=== PATIENT | female | born 1960 | race Caucasian/White ===

== ENCOUNTER → 2017-01-08 | Outpatient (CLI) | payer OTHER ==
--- NOTE | 2017-01-08 12:42 | KCIC ---
MR of the right knee HISTORY: Acute pain of right knee. Right medial knee pain for 6 weeks. TECHNIQUE: Routine multiplanar sequences are obtained. FINDINGS: Degenerative tear of the medial meniscus. No evidence of lateral meniscal tear mild signal at the anterior horn but no definite tear. Anterior and posterior cruciate ligaments are intact. Medial collateral ligament is intact. Iliotibial band unremarkable. Fibular collateral ligament, biceps femoris tendon and popliteus tendon are intact. Extensor mechanism is intact. Trace joint fluid. Severe chondromalacia at the medial joint compartment. Moderate chondromalacia of the lateral joint with severe chondromalacia at the posterior lateral tibial plateau. Severe chondromalacia at the patellofemoral joint, greater at the patella. No bone lesion. No acute fracture. Trace Betancur's cyst. There is a very small multilobulated cyst or ganglion medial to the medial tibial plateau. IMPRESSION: 1. Medial meniscal tear. 2. Signal at the anterior horn of the lateral meniscus but no definite tear. 3. Severe primary osteoarthritis. Electronically signed by: Abel Starkey MD (01/08/2017 12:38 PM)
--- NOTE | 2017-01-08 14:26 | KCIC ---
HIP LEFT 2 VIEW History: Left hip pain for several months, loss of range of motion Comparison: None. Findings: 2 views of the left hip are submitted. There is large osteophyte projecting laterally from the acetabulum superiorly. Left hip joint space is adequate. Left femoral head morphology is preserved. No acute fracture or dislocation is identified. Impression: 1. There is osteoarthritic change of the left hip, more prominent osteophyte projecting laterally from the superior left acetabulum. Electronically signed by: John Mercado MD (01/08/2017 2:22 PM)
== END ==
LOC: KCIC MRI 11:27
PROVIDERS: ATTEND Family Medicine
DX: S83.241A Other tear of medial meniscus, current injury, right knee, initial encounter (principal); M71.21 Synovial cyst of popliteal space [Baker], right knee; M94.261 Chondromalacia, right knee; X58.XXXA Exposure to other specified factors, initial encounter; Y93.89 Activity, other specified; Y92.89 Other specified places as the place of occurrence of the external cause; Y99.8 Other external cause status; M16.12 Unilateral primary osteoarthritis, left hip
CPT/HCPCS: 73502; 73721

== ENCOUNTER 2017-03-30 17:05 | Emergency (ER) | payer OTHER ==
[~2017-03-30] VITALS: Ht 162.6 cm; Wt 82.6 kg
[2017-03-30 17:56] LABS: BILIRUBIN,URINE NEGATIVE (NEG); GLUCOSE,URINE NEGATIVE (NEG); NITRITE,URINE POSITIVE (NEG); PROTEIN,URINE 30 mg/dL (NEG-TRACE); UROBILINOGEN,URINE 0.2 mg/dL (0.2 mg/dL)
[2017-03-30 18:03] LABS: BACTERIA,URINE MOD /HPF (0-FEW); SQUAMOUS EPITHELIAL CELL,UR MOD /LPF; WBC,URINE 20-40 /HPF (0-4)
[2017-03-30] MEDS ORDERED: CEPH-264 PO (18:51)
--- NOTE | 2017-03-30 18:51 | PHYS DOC ---
Adult General Chief Complaint Chief Complaint: PAIN ON URINATION HPI HPI Patient is a 56 year old F who presents with dysuria since last night. Patient states that every time she urinates she's having pain. Patient states she always had increased urinary frequency. Patient denies any fevers. Patient states this feels like previous bladder infection. Patient denies any abdominal pain. Patient states she only has pain with urination. Patient denies any other symptoms. Review of Systems Review of Systems GEN: Denies fevers, chills, sweats HEENT: Denies blurred vision, sore throat CV: Denies chest pain RESP: Denies shortness of air, cough GI: Burning with urination NEURO: Denies confusion, dizziness MSK: Denies weakness, joint pain/swelling Current Medications Current Medications Current Medications Medications (Trade) Dose Ordered Sig/Gen Start Time Stop Time Status Last Admin Dose Admin Ceftriaxone Sodium 1 gm/ Sodium Chloride 50 ml @ 100 mls/hr Q24H 03/30/17 18:30 UNV Ceftriaxone Sodium (Rocephin Im) 1 gm 1X ONCE 03/30/17 18:30 03/30/17 18:31 UNV Physical Exam Physical Exam GEN.: No apparent distress. Alert and oriented. HEENT: Head is normocephalic, atraumatic NECK: Supple. LUNGS: CTAB. HEART: RRR, S1, S2 present. Peripheral pulses intact ABDOMEN: Soft, nontender. Positive bowel sounds. EXTREMITIES: Without any cyanosis. NEUROLOGIC: Normal speech, normal tone PSYCHIATRIC: Normal affect, normal mood. SKIN: No ulcerations Current Patient Data Lab Values Laboratory Tests Test 03/30/17 17:45 Urine Color Yellow Urine Clarity Cloudy Urine pH 5.0 Urine Specific [place] 1.020 Urine Protein 30 mg/dL (NEG-TRACE) Urine Glucose (UA) Negative mg/dL (NEG) Urine Ketones (Stick) Negative mg/dL (NEG) Urine Blood Large (NEG) Urine Nitrite Positive (NEG) Urine Bilirubin Negative (NEG) Urine Urobilinogen Dipstick 0.2 mg/dL (0.2 mg/dL) Urine Leukocyte Esterase Moderate (NEG) Urine RBC 6-10 /HPF (0-2) Urine WBC 20-40 /HPF (0-4) Urine Squamous Epithelial Cells Mod /LPF Urine Bacteria Mod /HPF (0-FEW) Urine Hyaline Casts Occasional /HPF Urine Mucus Mod /LPF EKG EKG [] Radiology/Procedures Radiology/Procedures [] Course & Med Decision Making Course & Med Decision Making Pertinent Labs and Imaging studies reviewed. (See chart for details) ED course: Patient was seen and examined emergency room UA was ordered 184: Patient was updated on UA results and given 1 g Rocephin IM and will be sent home with Keflex by mouth. Patient is comfortable being discharged. MDM: After reviewing the chart, CC/HPI/PMH, physical exam, [lab results], I do not believe the patient has significant infection warranting further workup and/or admission at this time. I believe the patient has a non-compensated UTI that can be treated with oral antibiotics and discharged home with close follow-up as an outpatient. Patient is stable for discharge. Additional verbal discharge instructions were provided to the patient and that if symptoms get worse or any new symptoms arise that are worrisome to the patient she is to return to the emergency room immediately [] Dragon Disclaimer Dragon Disclaimer This electronic medical record was generated, in whole or in part, using a voice recognition dictation system. Departure Departure Impression: Primary Impression: UTI (urinary tract infection) Disposition: 01 HOME, SELF-CARE Condition: IMPROVED Referrals: KEVIN FRIEDMAN MD (PCP) Patient Instructions: Urinary Tract Infection, [id number] Additional Instructions: Please follow up with your family physician in the next one to 2 days and return symptoms increase Scripts Cephalexin (KEFLEX) 500 Mg Capsule 1 CAP PO TID, #21 CAP Prov: SALONI CASAS DO 03/30/17 SALONI CASAS DO Mar 30, 2017 18:51
[2017-03-30] MEDS ORDERED: cefTRIAXone IM 1 GM VIAL IM ONE (19:15)
[2017-03-30 19:28] VITALS: BP 163/97
== END 2017-03-30 19:30 | disposition home or self-care (01) ==
LOC: ER 17:05
DX: N39.0 Urinary tract infection, site not specified (principal)
CPT/HCPCS: 81001; 96372; 99283; J0696

== ENCOUNTER → 2017-09-01 | Day surgery (SDC) | payer OTHER ==
[~2017-09-01] MED LIST: DEXAMETHASONE SOD PHOS 20 MG/5 ML VIAL.; HYDROmorphone 2 MG/ML VIAL IV; LIDOCAINE 1% PF 2 ML VIAL. ID; LIDOCAINE 2% PF Vial for OR 5 ML VIAL.; MORPHINE SULFATE 2 MG/ML DISP.SYRIN. IV; ONDANSETRON PF 4 MG/2 ML VIAL.; ONDANSETRON PF 4 MG/2 ML VIAL. IV; PROCHLORPERAZINE 10 MG/2 ML VIAL. IV; PROPOFOL 20 ML IV; SCOPOLAMINE 1.5MG PATCH. TD; SEVOFLURANE 31 TO 60 MINUTES. IH; fentaNYL PF VIAL 100 MCG/2 ML VIAL; fentaNYL PF VIAL 100 MCG/2 ML VIAL IV
[2017-09-01] MEDS: IV RINGERS,LACTATED 1000ML 1,000 ML IV ×2 (07:00)
[2017-09-01] MEDS: SCOPOLAMINE 1.5MG PATCH. TD ×2 (12:40)
[2017-09-01] MEDS: BUPIVACAINE MPF 0.5% 30 ML VIAL. ×2 (13:40)
[2017-09-01] MEDS: fentaNYL PF VIAL 100 MCG/2 ML VIAL IV ×4 (14:24→14:38)
[2017-09-01] MEDS: ALBUTEROL SULFATE 2.5 MG/3 ML NEBU. NEB ×2 (15:06)
[2017-09-01] MEDS: oxyCODONE/APAP 5/325 1 TAB TABLET PO ×2 (15:14)
== END | disposition home or self-care (01) ==
LOC: SURG 09:59
DX: S83.241A Other tear of medial meniscus, current injury, right knee, initial encounter (principal); X58.XXXA Exposure to other specified factors, initial encounter; Y93.89 Activity, other specified; Y92.89 Other specified places as the place of occurrence of the external cause; Y99.8 Other external cause status; M94.261 Chondromalacia, right knee; E78.00 Pure hypercholesterolemia, unspecified; Z86.69 Personal history of other diseases of the nervous system and sense organs; Z90.710 Acquired absence of both cervix and uterus; Z87.442 Personal history of urinary calculi; Z87.39 Personal history of other diseases of the musculoskeletal system and connective tissue
CPT/HCPCS: 29881; J0690; J1100; J2405; J2704; J3010; J3490; J7613

== ENCOUNTER 2018-08-05 08:25 | Emergency (ER) | payer OTHER ==
[~2018-08-05] VITALS: Ht 157.5 cm; Wt 81.6 kg
[~2018-08-05 08:25] MED LIST changes: +CEPH-264 PO; -DEXAMETHASONE SOD PHOS 20 MG/5 ML VIAL.; -HYDROmorphone 2 MG/ML VIAL IV; -LIDOCAINE 1% PF 2 ML VIAL. ID; -LIDOCAINE 2% PF Vial for OR 5 ML VIAL.; -MORPHINE SULFATE 2 MG/ML DISP.SYRIN. IV; +OMEP20TA8 PO; -ONDANSETRON PF 4 MG/2 ML VIAL.; -ONDANSETRON PF 4 MG/2 ML VIAL. IV; +OXYC1TAB15 PO; +PRAM0.255 PO; -PROCHLORPERAZINE 10 MG/2 ML VIAL. IV; -PROPOFOL 20 ML IV; -SCOPOLAMINE 1.5MG PATCH. TD; -SEVOFLURANE 31 TO 60 MINUTES. IH; +SIMV20TA3 PO; -fentaNYL PF VIAL 100 MCG/2 ML VIAL; -fentaNYL PF VIAL 100 MCG/2 ML VIAL IV
[2018-08-05 08:46] VITALS: BP 143/83
--- NOTE | 2018-08-05 08:58 | PHYS DOC ---
Past Medical History Past Medical History: UTI Past Surgical History: No Surgical History Alcohol Use: None Drug Use: None Adult General Chief Complaint Chief Complaint: GROIN PAIN HPI HPI Patient is a 57 year old female who presents with left hip pain for 7 years and was diagnosed with arthritis and groin pain times years patient states low but worse today. She also complains that now she has a strained left hamstring. Recent pain a 10 out of 10 when she gets up and moves only. Review of Systems Review of Systems Constitutional: Denies fever or chills [] Eyes: Denies change in visual acuity, redness, or eye pain [] HENT: Denies nasal congestion or sore throat [] Respiratory: Denies cough or shortness of breath [] Cardiovascular: No additional information not addressed in HPI [] GI: Denies abdominal pain, nausea, vomiting, bloody stools or diarrhea [] : Denies dysuria or hematuria [] Musculoskeletal: Denies back pain or chronic left hip and groin joint pain [] Integument: Denies rash or skin lesions [] Neurologic: Denies headache, focal weakness or sensory changes [] All other systems were reviewed and found to be within normal limits, except as documented in this note. Current Medications Current Medications Current Medications Medications (Trade) Dose Ordered Sig/Gen Start Time Stop Time Status Last Admin Dose Admin Cyclobenzaprine HCl (Flexeril) 10 mg 1X ONCE 08/05/18 09:00 08/05/18 09:01 DC 08/05/18 08:58 10 MG Ketorolac Tromethamine (Toradol Im) 60 mg 1X ONCE 08/05/18 09:00 08/05/18 09:01 DC 08/05/18 08:59 60 MG Allergies Allergies Allergies Coded Allergies Type Severity Reaction Last Updated Verified No Known Drug Allergies 09/01/17 No Physical Exam Physical Exam Constitutional: Well developed, well nourished, no acute distress, non-toxic appearance. [] HENT: Normocephalic, atraumatic, bilateral external ears normal, oropharynx moist, no oral exudates, nose normal. [] Eyes: PERRLA, EOMI, conjunctiva normal, no discharge. [] Neck: Normal range of motion, no tenderness, supple, no stridor. [] Cardiovascular:Heart rate regular rhythm, no murmur [] Lungs & Thorax: Bilateral breath sounds clear to auscultation [] Abdomen: Bowel sounds normal, soft, no tenderness, no masses, no pulsatile masses. [] Skin: Warm, dry, no erythema, no rash. [] Back: No tenderness, no CVA tenderness. [] Extremities: No tenderness, no cyanosis, no clubbing, left hip ROM intact but painful., no edema. [] Neurologic: Alert and oriented X 3, normal motor function, normal sensory function, no focal deficits noted. [] Psychologic: Affect normal, judgement normal, mood normal. [] Current Patient Data Vital Signs Vital Signs Date Time Temp Pulse Resp B/P (MAP) Pulse Ox O2 Delivery O2 Flow Rate FiO2 08/05/18 08:46 98.4 82 18 143/83 (103) 98 Room Air 98.4 EKG EKG [] Radiology/Procedures Radiology/Procedures Left hip with pelvis Impressions: [facility] [address] [place] [address] IMAGING REPORT Signed PATIENT: MORAIMA WHITE ACCOUNT: [id number] : 1960 LOCATION: ER AGE: 57 SEX: F EXAM STATUS: REG ER ORD. PHYSICIAN: SUZANNE VO APRN REASON: chronic pain in hip and groin PROCEDURE: HIP LEFT 2V WITH PELVIS AP view of the pelvis and two-view study of the left hip Clinical indications: Chronic left hip pain and left groin pain for 2 years which has become worse over the past 2 weeks. No known injury. COMPARISON: Left hip study dated January 08, 2017. FINDINGS: No acute fracture or dislocation or osteolytic process is seen. Again seen is a focal bone island of the proximal shaft of the left femur which is unchanged. Again seen is moderate degenerative spurring without joint space narrowing of the left hip joint which is unchanged. There is mild degenerative spurring of the right hip joint. IMPRESSION: No acute osseous abnormality. Stable primary degenerative osteoarthritis of the left hip. Electronically signed by: Angelcia Horton MD (08/05/2018 9:18 AM) [id number] DICTATED and SIGNED BY: ANGELICA HORTON MD DATE: 08/05/18 0915 Course & Med Decision Making Course & Med Decision Making Patient is a 57 year old female who presents with left hip pain for 7 years and was diagnosed with arthritis and groin pain times years patient states low but worse today. She also complains that now she has a strained left hamstring. Recent pain a 10 out of 10 when she gets up and moves only. Ambulatory with a steady gait. Patient states she has some pain medicine left and she started taking it but has not taken anything today. There is no extremity swelling. Pedal pulses are present. There is no pain with palpation to calves or muscles of her legs. There is no deformity of the hip or swelling of the hip or bruising. She states her groin only hurts when she goes from sitting to standing or having to bend. Patient's primary care is Dr. Friedman. Patient is told this is most likely due to arthritis and chronically walking on the leg differently which is causing the groin pain and other ligament pain and possibly muscle strain in the back of her leg. Patient is given a Toradol IM shot and a muscle relaxer in the ED. X-ray of left hip and pelvics show No acute osseous abnormality. Stable primary degenerative osteoarthritis of the left hip. Patient will be given a prescription for pain medication and a muscle relaxer. She is to call her doctor this morning follow-up for continuation of care. Dragon Disclaimer Dragon Disclaimer This electronic medical record was generated, in whole or in part, using a voice recognition dictation system. Departure Departure Impression: Primary Impression: Arthritis of left hip Additional Impression: Muscle strain Disposition: 01 HOME, SELF-CARE Condition: STABLE Referrals: KEVIN FRIEDMAN MD (PCP) Patient Instructions: Arthritis, Degenerative-Brief, Muscle Strain Additional Instructions: Call your doctor today for continuation of care. Take medication as prescribed. Scripts Orphenadrine Citrate (ORPHENADRINE CITRATE) 100 Mg Tablet.er 1 TAB PO BID, #20 TAB Prov: SUZANNE VO APRN 08/05/18 Hydrocodone/Apap 5-325 (NORCO 5-325 TABLET) 1 Each Tablet 1 TAB PO PRN Q6HRS PRN for PAIN, #10 TAB 0 Refills Prov: SUZANNE VO APRN 08/05/18 Problem Qualifiers SUZANNE VO APRN Aug 05, 2018 08:58
[2018-08-05] MEDS ORDERED: CYCLOBENZAPRINE 10 MG TABLET. PO ONE (09:00)
[2018-08-05] MEDS ORDERED: KETOROLAC 60 MG/2 ML VIAL. IM ONE (09:00)
--- NOTE | 2018-08-05 09:23 | RAD ---
AP view of the pelvis and two-view study of the left hip Clinical indications: Chronic left hip pain and left groin pain for 2 years which has become worse over the past 2 weeks. No known injury. COMPARISON: Left hip study dated January 08, 2017. FINDINGS: No acute fracture or dislocation or osteolytic process is seen. Again seen is a focal bone island of the proximal shaft of the left femur which is unchanged. Again seen is moderate degenerative spurring without joint space narrowing of the left hip joint which is unchanged. There is mild degenerative spurring of the right hip joint. IMPRESSION: No acute osseous abnormality. Stable primary degenerative osteoarthritis of the left hip. Electronically signed by: Melvin Horton MD (08/05/2018 9:18 AM) [id number]
[2018-08-05] MEDS ORDERED: ORPH100T PO (09:29)
[2018-08-05] MEDS ORDERED: HYDR-3164 PO (09:29)
== END 2018-08-05 09:35 | disposition home or self-care (01) ==
LOC: ER 08:25
DX: S86.812A Strain of other muscle(s) and tendon(s) at lower leg level, left leg, initial encounter (principal); M16.12 Unilateral primary osteoarthritis, left hip; R10.30 Lower abdominal pain, unspecified; G89.29 Other chronic pain; X58.XXXA Exposure to other specified factors, initial encounter; Y93.89 Activity, other specified; Y92.89 Other specified places as the place of occurrence of the external cause; Y99.8 Other external cause status
CPT/HCPCS: 73502; 96372; 99283; J1885

== ENCOUNTER → 2018-09-14 | Outpatient (CLI) | payer OTHER ==
[~2018-09-14] MED LIST changes: +BUPIVACAINE MPF 0.5% 10 ML VIAL for KCIC. IM ONE; +HYDR-3164 PO; +IOHEXOL 300 MG/ML 50 ML VIAL. INT ART ONE; +LIDOCAINE 1% Multi-Dose 20 ML VIAL. ID ONE; +ORPH100T PO; +methylPREDNISolone ACETATE 40 MG/ML VIAL. INT ART ONE
--- NOTE | 2018-09-14 16:42 | KCIC ---
EXAM: Left hip joint injection WITH Fluoroscopic guidance DATE: 09/14/2018 1:00 PM CLINICAL HISTORY: Left hip pain, osteoarthritis COMPARISON: 09/08/2018 TECHNIQUE: The patient was informed of the indications and alternatives for this procedure as well as risks and benefits. No immediate contraindication identified. The patient provided informed, written consent. Laterality was confirmed by the entire team following a time out. Following initial left hip joint localization, a suitable area was sterilely prepped and draped. Local anesthesia was administered with 1% xylocaine. With intermittent fluoroscopic observation, a 22-gauge spinal needle was advanced into the left hip joint sheath/capsule with confirmation of intra-synovial position with infusion of iodinated contrast. Subsequent infusion 80 mg Depo-Medrol, 4 cc lidocaine 1%, 4 cc bupivacaine 0.25%. Hemostasis with local pressure. Local clinical exam negative for immediate complication. Patient informed re local potential signs or symptoms that may indicate need to return to ER/Ordering physician for further evaluation. Patient informed re precautionary measures after intra-synovial injection of anesthetic. Patient informed re potential for short term increase local symptomatology due to steroid flare. Patient expressed understanding. Performing Physicians: Dr. Cynthia Sun Blood Loss: 0 cc Total Fluoroscopy time: 18 seconds Total spot images taken: 0 Total fluoroscopic screen save images: 1 IMPRESSION: Successful intra-synovial injection left hip joint with steroid and anesthetic per clinical request. Electronically signed by: Geovany Sun MD (09/14/2018 4:40 PM) [facility]-KCIC2
== END | disposition home or self-care (01) ==
LOC: KCIC 12:11
PROVIDERS: ATTEND Orthopaedic Surgery
DX: M16.12 Unilateral primary osteoarthritis, left hip (principal); I10 Essential (primary) hypertension; Z79.899 Other long term (current) drug therapy
CPT/HCPCS: 20610; 77002; J1030; Q9967

== ENCOUNTER → 2018-11-12 | Outpatient (CLI) | payer OTHER ==
[~2018-11-12] MED LIST changes: -BUPIVACAINE MPF 0.5% 10 ML VIAL for KCIC. IM ONE; -IOHEXOL 300 MG/ML 50 ML VIAL. INT ART ONE; -LIDOCAINE 1% Multi-Dose 20 ML VIAL. ID ONE; -methylPREDNISolone ACETATE 40 MG/ML VIAL. INT ART ONE
--- NOTE | 2018-11-12 15:06 | KCIC ---
2 view lumbar spine series Clinical indications: Low back pain. Previous lumbar surgery in the 80s. FINDINGS: The transverse processes are intact. No compression fracture or discitis or lytic process is evident. There is a grade 1 anterolisthesis of L4-5. Degenerative facet arthropathy is seen at L4-5 and L5-S1 is seen. There is mild degenerative endplate spurring throughout the lumbar spine. There is moderate degenerative endplate spurring and moderate degenerative disc space narrowing at L5-S1. Small radiopaque stone of the left kidney is seen. There is a laminectomy defect on the left side at L5. IMPRESSION: Degenerative lumbar spondylosis. Grade 1 anterolisthesis of L4-5. Electronically signed by: Melvin Horton MD (11/12/2018 3:03 PM) [facility]-KCIC2
--- NOTE | 2018-11-12 15:08 | KCIC ---
AP view of the pelvis Clinical indications: Back pain. FINDINGS: No diastases of the symphysis pubis or either SI joint is seen. Mild primary degenerative osteoarthritis and spurring of the symphysis pubis is seen. No erosive arthropathy or ankylosis of either SI joint is seen. There is mild primary degenerative osteoarthritis of the right hip joint and moderate primary degenerative osteoarthritis of the left hip joint. No acute fracture or lytic process is seen. IMPRESSION: Primary degenerative osteoarthritis of both hip joints more prominent on the left side. Electronically signed by: Melvin Horton MD (11/12/2018 3:05 PM) [facility]-KCIC2
--- NOTE | 2018-11-12 17:40 | KCIC ---
2 view study of both ankles Clinical indications: Bilateral ankle pain. Osteoarthritis. Left ankle: No acute fracture or dislocation or lytic process is seen. There is a prominent spur of the medial body of the talus. Mild degenerative subchondral cyst formation of the medial aspect of the mortise ankle joint is seen. Mild degenerative spurring of the tibiotalar joint compartment is seen. Small posterior spur of the calcaneus is seen. Small plantar spur of the calcaneus is seen. There is mild calcification of the plantar fascia attachment to the plantar aspect of the calcaneus which may indicate mild plantar fasciitis. IMPRESSION: Mild degenerative osteoarthritis of the mortise ankle joint. Mild calcific plantar fasciitis. Right ankle: No acute fracture or dislocation or lytic process is evident. There is mild degenerative spurring of the tibiotalar joint compartment. The mortise ankle joint is intact. Prominent plantar spur of the calcaneus is seen. Small posterior spur of the calcaneus is seen. IMPRESSION: Mild degenerative osteoarthritis of the mortise ankle joint. Electronically signed by: Melvin Horton MD (11/12/2018 5:37 PM) [facility]-KCIC2
--- NOTE | 2018-11-12 17:42 | KCIC ---
AP view of both hands Clinical indications: Osteoarthritis and joint pain. M 15.9. R 76.0. R53.83. Left hand: No acute fracture or dislocation or lytic process is seen. No erosive arthropathy is evident. There is mild primary degenerative osteoarthritis and spurring of the first carpal metacarpal joint and the scaphoid trapezium joint and the distal radioulnar joint and the first metacarpal phalangeal joint and the first interphalangeal joint. Right hand: No acute fracture or dislocation or lytic process is seen. No erosive arthropathy is evident. There is mild degenerative spurring of the scaphoid trapezium joint and the first carpal metacarpal joint and the first metacarpal phalangeal joint and the first interphalangeal joint and the second DIP joint and the distal radial ulnar joint. IMPRESSION: Mild primary degenerative osteoarthritis of both hands and wrists. Electronically signed by: Melvin Horton MD (11/12/2018 5:39 PM) [email or web address]
== END | disposition home or self-care (01) ==
LOC: KCIC 10:27
PROVIDERS: ATTEND Internal Medicine Rheumatology
DX: M47.816 Spondylosis without myelopathy or radiculopathy, lumbar region (principal); M48.07 Spinal stenosis, lumbosacral region; M16.0 Bilateral primary osteoarthritis of hip; M19.072 Primary osteoarthritis, left ankle and foot; M19.071 Primary osteoarthritis, right ankle and foot; M77.31 Calcaneal spur, right foot; M77.32 Calcaneal spur, left foot; M19.042 Primary osteoarthritis, left hand; M19.041 Primary osteoarthritis, right hand; M72.2 Plantar fascial fibromatosis; M77.9 Enthesopathy, unspecified; R76.0 Raised antibody titer; R53.83 Other fatigue
CPT/HCPCS: 72100; 72170; 73120; 73600

== ENCOUNTER → 2019-03-10 | Outpatient (CLI) | payer OTHER ==
[~2019-03-10] MED LIST changes: +REGADENOSON 0.4 MG/5 ML DISP.SYRIN. IV ONE
--- NOTE | 2019-03-11 12:25 | RAD ---
MR#: [id number] Date of Study: 03/10/2019 Ordering Physician: CATY DRAKE, Referring Physician: JASIEL ROBERTS Tech: RUSH Lindsay ARRT (R) (N) APPROVED REPORT Test Type: Pharmacological Stress Nurse/Tech: Sarah Gupta RN Test Indications: Chest pain Cardiac History: Family history Medications: See Electronic Medical Record Medical History: See Electronic Medical Record Resting ECG: SR Resting Heart Rate: 75 bpm Resting Blood Pressure: 157/90mmHg Pretest Chest Pain: No chest pain Nurse/Tech Notes S1,S2 and lungs are clear to auscultation. Consent: The procedure was explained to the patient in lay terms. Informed consent was witnessed. Raul eout was entered into [employer]. History and Stress Test performed by RUSH Lindsay ARRT (R) (N) Pharm. Details Pharmacologic stress testing was performed using 0.4mg per 5ml of regadenoson given intravenously ove r 7-10 seconds. Stress Symptoms Dyspnea POST EXERCISE Reason for Termination: Infusion complete Target HR: No Max HR: 113 bpm Max Blood Pressure: 147/88mmHg Blood Pressure response to exercise: Normal blood pressure response during stress. Heart Rate response to exercise: WNL Chest Pain: No. Arrhythmia: No. ST Change: No. INTERPRETATION Stress EKG Conclusion: Baseline EKG showed sinus rhythm. No ischemic changes at peak stress. No arr hythmias. Imaging Protocol IMAGE PROTOCOL: Rest Tc-99m/stress Tc-99m 1 day Rest: Stress: Viability: Radiopharm.Tc99m [id number] Sestamibi [id number] 33mCi Img Date 03/10/2019 03/10/2019 Inj-Img [id number]. 60min. Rest Admin Site:IV - Left AntecubitalAdministrator:RUSH Lindsay ARRT (R)(N) Stress Admin Site: IV - Left AntecubitalAdministrator: RT Tomasa (R)(N) Study quality was good. Left Ventricular size was Normal at Rest and Stress. Lung uptake was . Left Ventricular ejection fraction is 89%. The rest and stress images show normal perfusion, normal contraction and thickening. Conclusion 1. Regadenoson cardioisotope stress test did not show any evidence of ischemia or infarct. 2. Normal left ventricular systolic function with ejection fraction calculated at 89%. 3. Low risk for cardiac events. Signed by : Grey Aguialr, Electronically Approved : 03/11/2019 12:25:23
== END | disposition home or self-care (01) ==
LOC: NM 09:14
PROVIDERS: ATTEND Internal Medicine
DX: I25.118 Atherosclerotic heart disease of native coronary artery with other forms of angina pectoris (principal); Z82.49 Family history of ischemic heart disease and other diseases of the circulatory system
CPT/HCPCS: 78452; 93017; A9500; J2785

== ENCOUNTER → 2019-07-08 | Outpatient (CLI) | payer OTHER ==
[~2019-07-08] MED LIST changes: -REGADENOSON 0.4 MG/5 ML DISP.SYRIN. IV ONE; +SIMV20TA18 PO; -SIMV20TA3 PO
--- NOTE | 2019-07-09 14:17 | KCIC ---
Right knee 2 views. HISTORY: Chronic knee pain 2 views were taken of the right knee. There is mild joint space narrowing in the medial joint compartment. There is slight chondrocalcinosis. There is mild spurring on the patella. There is no acute fracture. IMPRESSION: 1. Mild arthritis with mild joint space narrowing in the medial joint compartment. Electronically signed by: Reynold Reed MD (07/09/2019 2:14 PM) [facility]
== END | disposition home or self-care (01) ==
LOC: KCIC 13:24
PROVIDERS: ATTEND Internal Medicine Rheumatology
DX: M17.11 Unilateral primary osteoarthritis, right knee (principal); G89.29 Other chronic pain; R76.0 Raised antibody titer
CPT/HCPCS: 73560

== ENCOUNTER → 2019-10-06 | Outpatient (CLI) | payer OTHER ==
[~2019-10-06] MED LIST changes: +BUPIVACAINE MPF 0.25% 10 ML VIAL. ONE; +CELE200C PO; +GABA-585 PO; +IOHEXOL 240 MG/ML 50ML VIAL. ONE; +LISI2.5T PO; +METF500T16 PO; +SIMV40TA18 PO; +VITA1CAP7 PO; +methylPREDNISolone ACETATE 80 MG/ML VIAL. ONE
--- NOTE | 2019-10-06 21:42 | PAIN ---
DATE OF SERVICE: 10/06/2019 INITIAL CONSULTATION FOR PAIN CLINIC CHIEF COMPLAINT: Left hip pain and right knee pain. HISTORY OF PRESENT ILLNESS: This is a 58-year-old female who presents with history of pain, both in the left hip and the right knee for many years, about 9 years, increasing with activity, walking, standing, especially putting all of her weight on one side or the other. The patient reports her right knee is her chief complaint, but her left hip is significantly painful as well. The patient reports a constant pain that is aching and dull, worse with walking, standing, putting all her weight on one side, especially when she is stepping on a stair or a curb on the left hip with radiating pain to the left groin significant pain and stiffness in the right knee with the same activities with putting normal weight on her right side. The patient reports it is constant and aching, rates her disability rating from 0-10, 10 being the worst, is a 10 with family and home responsibilities, recreation, occupation and sexual behavior, 7 with self-care, 9 with social activity, 4 with life support activities. The patient has tried Celebrex as well as gabapentin. She has done physical therapy, also had some trigger point injections, which helped, but only temporarily. The patient had x-rays of both the hips and the knees showing some degenerative arthritis, osteoarthritis in each joint as documented. The patient reports no loss of motor function, but significant fatigability, especially of the left hip and the right knee with stiffness in the knee with walking, standing or even just weightbearing. The patient reports it awakens her from sleep occasionally, mostly in the left hip when she is lying on her left side, on and off through the night. The patient reports it does not affect her bowel or bladder control, but does affect her ability to walk; however, she is not using any assistive devices to ambulate. PAST MEDICAL HISTORY: Significant for shortness of breath, diabetes, hypertension, arthritis. SURGICAL HISTORY: Previous surgeries include lumbar laminectomy, previous hysterectomy, or bladder sling oophorectomy lipoma removed as well as knee surgery with meniscectomy. CURRENT MEDICATIONS: Include Celebrex, metformin, lisinopril, simvastatin, gabapentin, Mirapex and vitamin B. ALLERGIES: THE PATIENT IS ALLERGIC TO ERYTHROMYCIN, AZITHROMYCIN. FAMILY HISTORY: Significant for hypertension, diabetes, rheumatoid arthritis, cancer and heart disease. SOCIAL HISTORY: The patient does not drink alcohol, does not smoke, does not use any illegal, illicit or recreational drugs. She is , lives with her spouse, lives locally in [place], [place]. REVIEW OF SYSTEMS: The patient's review of systems is positive for those items mentioned in history of present illness. All systems reviewed and otherwise negative. It is complete, full and well documented on the patient's chart. PHYSICAL EXAMINATION: VITAL SIGNS: The patient's blood pressure is 137/92, pulse 88, respirations 18, temperature 98.1 degrees Fahrenheit, height is 5 feet 2 inches, weight is 195 pounds. GENERAL: The patient is awake, alert, oriented, appropriate, very pleasant demeanor. HEENT: Head shows normocephalic, atraumatic. Extraocular movements are intact and symmetrical. Oral cavity: Mucous membranes moist and pink. Dentition is intact. NECK: Shows anterior throat supple without palpable lymphadenopathy noted. Swallow reflex symmetrical. CHEST: Shows normal on inspection. Breath sounds clear to auscultation bilaterally. ABDOMEN: Soft, nontender, nondistended. No palpable organomegaly is noted. No rebound or guarding demonstrated. HEART: Shows S1, S2 clear. No murmurs auscultated. BACK: Shows spine grossly in the midline, normal-appearing cervical lordotic curvature, thoracic kyphotic curvature, some minor flattening of lumbar lordotic curvature. The patient's back shows good rotational motion both laterally as well as the extension and flexion, only very minimal pain with extension, not with forward flexion, right and left lateral rotation of the lumbar spine. Paraspinous muscles are symmetrical. No trigger points, no asymmetry, no atrophy or hypertrophy. No tenderness over the spinous processes, sacrum or sacroiliac regions. EXTREMITIES: The patient's lower extremities show deep tendon reflexes at 1+ in the patellar and tendo calcaneus tendons. Motor exam is 5/5 with dorsiflexion, extension, quadriceps and hamstring flexion symmetrical. The patient has had some stiffness and pain reported with passive motion of the right knee, but no displacement of the patella with increased pain. No shelf sign. No ratcheting or cogwheeling of the joint. No crepitus of the joint with left hip shows positive Kamari's sign with external rotation and lateral displacement of the left hip with significant pain in the left groin, but right side is negative. Left knee likewise is negative with good range of motion without pain or stiffness. Peripheral pulses are 1+ posterior tibia. No peripheral edema is noted bilaterally. IMPRESSION: 1. This is a 58-year-old female with approximately 9-year history of pain in the base of the neck into the left hip as well as right knee with her main complaint being the right knee pain today. 2. Plain films of left hip and right knee as noted. 3. Type 2 diabetes. 4. Hypertension. 5. Arthritis. PLAN: Options were discussed with the patient including conservative medical management, physical therapies and interventional techniques were discussed. Intraarticular joint injections of both the left hip and the right knee. The patient reports her knee is the most painful at this time and she would like to start with the right knee joint injection. We discussed the procedure using description as well as anatomical models to describe the procedure. Risks were discussed including but not limited to bleeding, infection, possibility of intravascular injection sequelae, spread of local anesthetic and numbness, exposure to fluoroscopy, side effects of steroid medication including increased blood glucose and poor results regarding pain control. The patient understands and wished to proceed. The patient will return to clinic in approximately 2 weeks for followup. She was counseled on return appointment, activity level and side effects to be aware of. DIAGNOSIS: Right knee pain with osteoarthritis, right knee joint. PROCEDURE: Right intra-articular knee joint injection using C-arm fluoroscopic guidance under sterile prep and drape using local anesthetic. MEDICATION INJECTED: A total of 80 mg Depo-Medrol plus 3 mL of 0.25% bupivacaine and 1.5 mL of contrast. CONDITION AT DISCHARGE: Stable. The patient tolerated the procedure well, had no complications. CAROL JIMENEZ MD DR: ABDI/krystle JOB#: [id number] / [id number] KEVIN Rivera MD
== END ==
LOC: PNCL 09:29
PROVIDERS: ATTEND Anesthesiology
DX: M17.11 Unilateral primary osteoarthritis, right knee (principal); E11.9 Type 2 diabetes mellitus without complications; I10 Essential (primary) hypertension; Z87.39 Personal history of other diseases of the musculoskeletal system and connective tissue; Z90.710 Acquired absence of both cervix and uterus; Z90.721 Acquired absence of ovaries, unilateral; Z98.890 Other specified postprocedural states; Z88.1 Allergy status to other antibiotic agents; Z79.84 Long term (current) use of oral hypoglycemic drugs
CPT/HCPCS: 20610; 77002; J1040; J3490; Q9966

== ENCOUNTER → 2020-02-16 | Outpatient (CLI) | payer OTHER ==
[~2020-02-16] MED LIST changes: -BUPIVACAINE MPF 0.25% 10 ML VIAL. ONE; -IOHEXOL 240 MG/ML 50ML VIAL. ONE; +KETO10TA PO; -methylPREDNISolone ACETATE 80 MG/ML VIAL. ONE
--- NOTE | 2020-02-16 13:58 | KCIC ---
AP pelvis radiograph 02/16/2020 CLINICAL HISTORY: Chronic pelvic pain. An AP digital radiograph of the pelvis to include both hips was obtained. 2 small threaded screws are seen within the superior pubic ramus, unchanged. No pelvic bone fracture is seen. Both hips are intact. Moderate to severe degenerative changes are seen involving both hips, left greater than right. These consist of joint compartment narrowing, subchondral sclerosis and associated osteophyte formation. Mild to moderate degenerative changes are seen involving both SI joints. IMPRESSION: Degenerative changes are seen as discussed above. No acute osseous abnormality is seen. Electronically signed by: Edgardo Campuzano MD (02/16/2020 1:55 PM) [id number]
== END ==
LOC: KCIC 13:12
PROVIDERS: ATTEND Internal Medicine Rheumatology
DX: M16.0 Bilateral primary osteoarthritis of hip (principal)
CPT/HCPCS: 72170

== ENCOUNTER 2020-03-19 01:55 | Emergency (ER) | payer OTHER ==
[~2020-03-19] VITALS: Ht 157.5 cm; Wt 86.4 kg
[~2020-03-19 01:55] MED LIST changes: -KETO10TA PO
[2020-03-19] MEDS ORDERED: ONDANSETRON PF 4 MG/2 ML VIAL. IVP ONE (03:15)
[2020-03-19] MEDS ORDERED: IV NORMAL SALINE 1000ML BAG 1,000 ML IV ONE (03:15)
[2020-03-19] MEDS ORDERED: MORPHINE SULFATE 10 MG/ML VIAL. IV ONE (03:15)
[2020-03-19 03:40] LABS: BASO # 0.1 x10^3/uL (0.0-0.2); BASO % 1 % (0-3); EOS # 0.2 x10^3/uL (0.0-0.7); EOS % 3 % (0-3); HEMATOCRIT 39.8 % (36.0-47.0); HEMOGLOBIN 13.6 g/dL (12.0-15.5); LYMPH # 1.8 x10^3/uL (1.0-4.8); LYMPH % 30 % (24-48); MEAN CORPUSCULAR HEMOGLOBIN 32 pg (25-35); MEAN CORPUSCULAR HGB CONC 34 g/dL (31-37); MEAN CORPUSCULAR VOLUME 93 fL (79-100); MONO # 0.4 x10^3/uL (0.0-1.1); MONO % 7 % (0-9); NEUT # 3.6 x10^3/uL (1.8-7.7); NEUT % 59 % (31-73); PLATELET COUNT 284 x10^3/uL (140-400); RED CELL DISTRIBUTION WIDTH 13.2 % (11.5-14.5); WHITE BLOOD COUNT 6.1 x10^3/uL (4.0-11.0)
[2020-03-19 03:46] LABS: CREATININE 0.7 mg/dL (0.6-1.0); GFR 85.6; POTASSIUM 3.6 mmol/L (3.5-5.1)
[2020-03-19 03:51] LABS: ALBUMIN 3.5 g/dL (3.4-5.0); ALBUMIN/GLOBULIN RATIO 1.1 (1.0-1.7); TOTAL BILIRUBIN 0.4 mg/dL (0.2-1.0); TOTAL PROTEIN 6.8 g/dL (6.4-8.2)
[2020-03-19 04:01] LABS: BILIRUBIN,URINE NEGATIVE (NEG); CLARITY,URINE CLEAR; COLOR,URINE YELLOW; NITRITE,URINE NEGATIVE (NEG); PROTEIN,URINE NEGATIVE (NEG-TRACE); UROBILINOGEN,URINE 0.2 mg/dL (0.2 mg/dL)
[2020-03-19 04:06] LABS: BACTERIA,URINE MOD /HPF (0-FEW); SQUAMOUS EPITHELIAL CELL,UR MOD /LPF
--- NOTE | 2020-03-19 04:44 | RAD ---
Study: CT abdomen/pelvis without intravenous contrast Indication: Flank/pelvic pain. Comparison: 05/23/2008 Technique: Helical CT imaging performed of the abdomen and pelvis without the use of intravenous contrast. Sagittal and coronal reformats were obtained. One or more of the following individualized dose reduction techniques were utilized for this examination: 1. Automated exposure control 2. Adjustment of the mA and/or kV according to patient size 3. Use of iterative reconstruction technique. Findings: Inherently limited evaluation without intravenous contrast. Haziness at the medial right lower lobe is favored related to atelectasis and a similar finding was present in 2007. Hepatic steatosis and the liver is somewhat prominent in size. No CT evidence for acute cholecystitis. Unremarkable biliary tree. Unremarkable pancreas and spleen. No adrenal gland mass. Mild segmental prominence of the right ureter but no obstructing process is seen. No intrarenal stone. Hydroureteronephrosis on the left and periureteral more so than perinephric fat stranding in the setting of a 5 mm stone approximately 3 cm cephalad to the ureterovesicular junction, image 170 series 2. Mildly distended urinary bladder. Additional punctate nonobstructing renal stone on the left. Absent uterus. No adnexal mass. No acute abnormality of the colon. Mild constipation. Normal appendix. Nonobstructed small bowel. Poorly evaluated stomach due to underdistention. Nonaneurysmal aorta. No concerning lymph nodes. No free fluid or gas. Scattered degenerative osseous findings on a background of osteopenia. Arthrosis is greatest at the left hip than the right. Pubic body surgical changes. Lower lumbar dorsal decompression. Advanced discogenic arthrosis at L5-S1. Impression: 1. Left-sided hydroureteronephrosis in the setting of a 5 mm obstructing stone approximately 3 cm above the ureterovesicular junction. 2. Additional chronic findings as above. Electronically signed by: PANKAJ SALDANA MD (03/19/2020 4:41 AM) [id number]
[2020-03-19] MEDS ORDERED: KETOROLAC 30 MG/ML VIAL. IVP ONE (05:00)
[2020-03-19] MEDS ORDERED: KETO10TA PO (05:36)
[2020-03-19] MEDS ORDERED: OXYC1TAB15 PO (05:36)
--- NOTE | 2020-03-19 05:36 | PHYS DOC ---
Past Medical History Past Medical History: High Cholesterol, Hypertension, UTI Additional Past Medical Histor: RLS, ULCERS Past Surgical History: Hysterectomy Additional Past Surgical Histo: BACK SX, R KNEE SX, LITHOTRIPSY, BLADDER SLING Smoking Status: Never Smoker Alcohol Use: None Drug Use: None General Adult EDM: Chief Complaint: ABDOMINAL PAIN HPI: HPI: Patient is a 59 year old female who presents to the Emergency Room complaining of left lower pelvic pain. She states that it woke her up in the middle of the night. She has some associated nausea with it. She denies any dysuria, fever, vomiting, back pain, chest pain, shortness of breath. Review of Systems: Review of Systems: General: Denies fever, chills, sweats, fatigue Eyes: Denies drainage, blurred vision, eye redness HENT: Denies rhinorrhea, sore throat, earache Respiratory: Denies cough, shortness of breath, wheezing Cardiac: Denies edema, palpitations, chest pain GI: Reports nausea, abdominal pain. Denies vomiting, diarrhea, constipation MSK: Denies neck pain, back pain Skin: Denies rash, jaundice Neuro: Denies headache, dizziness Psychiatric: Denies SI/HI Heart Score: Risk Factors: Risk Factors: DM, Current or recent (<one month) smoker, HTN, HLP, family history of CAD, obesity. Risk Scores: Score 0 - 3: 2.5% MACE over next 6 weeks - Discharge Home Score 4 - 6: 20.3% MACE over next 6 weeks - Admit for Clinical Observation Score 7 - 10: 72.7% MACE over next 6 weeks - Early Invasive Strategies Current Medications: Current Medications Medications (Trade) Dose Ordered Sig/Gen Start Time Stop Time Status Last Admin Dose Admin Ketorolac Tromethamine (Toradol 30mg Vial) 30 mg 1X ONCE 03/19/20 05:00 03/19/20 05:11 DC 03/19/20 05:07 30 MG Morphine Sulfate (Morphine Sulfate) 5 mg 1X ONCE 03/19/20 03:15 03/19/20 03:33 DC 03/19/20 03:26 5 MG Ondansetron HCl (Zofran) 4 mg 1X ONCE 03/19/20 03:15 03/19/20 03:33 DC 03/19/20 03:26 4 MG Sodium Chloride 1,000 ml @ 1,000 mls/hr 1X ONCE 03/19/20 03:15 03/19/20 04:14 DC 03/19/20 03:35 1,000 MLS/HR Allergies: Allergies: Allergies Coded Allergies Type Severity Reaction Last Updated Verified azithromycin Allergy Unknown 10/06/19 Yes Physical Exam: PE: General: Awake, alert, NAD. Well Nourished, well hydrated. Cooperative HEENT: Atraumatic, EOMI, PERRL, airway patent, moist oral mucosa Neck: Supple, trachea midline Respiratory: CTA bilaterally, normal effort, no wheezing/crackles CV: RRR, no murmur, cap refill <2 GI: Soft, nondistended, lower abdominal tenderness, no masses MSK: No obvious deformities Skin: Warm, dry, intact Neuro: A&O x3, speech NL, sensory and motor grossly intact, no focal deficits Psych: Normal affect, normal mood, not suicidal or homicidal Current Patient Data: Labs: Laboratory Tests Test 03/19/20 03:30 03/19/20 03:50 White Blood Count 6.1 x10^3/uL (4.0-11.0) Red Blood Count 4.30 x10^6/uL (3.50-5.40) Hemoglobin 13.6 g/dL (12.0-15.5) Hematocrit 39.8 % (36.0-47.0) Mean Corpuscular Volume 93 fL (79-100) Mean Corpuscular Hemoglobin 32 pg (25-35) Mean Corpuscular Hemoglobin Concent 34 g/dL (31-37) Red Cell Distribution Width 13.2 % (11.5-14.5) Platelet Count 284 x10^3/uL (140-400) Neutrophils (%) (Auto) 59 % (31-73) Lymphocytes (%) (Auto) 30 % (24-48) Monocytes (%) (Auto) 7 % (0-9) Eosinophils (%) (Auto) 3 % (0-3) Basophils (%) (Auto) 1 % (0-3) Neutrophils # (Auto) 3.6 x10^3/uL (1.8-7.7) Lymphocytes # (Auto) 1.8 x10^3/uL (1.0-4.8) Monocytes # (Auto) 0.4 x10^3/uL (0.0-1.1) Eosinophils # (Auto) 0.2 x10^3/uL (0.0-0.7) Basophils # (Auto) 0.1 x10^3/uL (0.0-0.2) Sodium Level 141 mmol/L (136-145) Potassium Level 3.6 mmol/L (3.5-5.1) Chloride Level 105 mmol/L (98-107) Carbon Dioxide Level 26 mmol/L (21-32) Anion Gap 10 (6-14) Blood Urea Nitrogen 13 mg/dL (7-20) Creatinine 0.7 mg/dL (0.6-1.0) Estimated GFR (Cockcroft-Gault) 85.6 BUN/Creatinine Ratio 19 (6-20) Glucose Level 147 mg/dL (70-99) H Calcium Level 9.0 mg/dL (8.5-10.1) Total Bilirubin 0.4 mg/dL (0.2-1.0) Aspartate Amino Transferase (AST) 35 U/L (15-37) Alanine Aminotransferase (ALT) 51 U/L (14-59) Alkaline Phosphatase 100 U/L (46-116) Total Protein 6.8 g/dL (6.4-8.2) Albumin 3.5 g/dL (3.4-5.0) Albumin/Globulin Ratio 1.1 (1.0-1.7) Urine Collection Type Unknown Urine Color Yellow Urine Clarity Clear Urine pH 7.0 (<5.0-8.0) Urine Specific [place] 1.010 (1.000-1.030) Urine Protein Negative mg/dL (NEG-TRACE) Urine Glucose (UA) Negative mg/dL (NEG) Urine Ketones (Stick) Negative mg/dL (NEG) Urine Blood Small (NEG) Urine Nitrite Negative (NEG) Urine Bilirubin Negative (NEG) Urine Urobilinogen Dipstick 0.2 mg/dL (0.2 mg/dL) Urine Leukocyte Esterase Negative (NEG) Urine RBC 6-10 /HPF (0-2) Urine WBC 1-4 /HPF (0-4) Urine Squamous Epithelial Cells Mod /LPF Urine Bacteria Mod /HPF (0-FEW) Urine Mucus Slight /LPF Laboratory Tests 03/19/20 03:30 Laboratory Tests 03/19/20 03:30 Vital Signs: Vital Signs Date Time Temp Pulse Resp B/P (MAP) Pulse Ox O2 Delivery O2 Flow Rate FiO2 03/19/20 04:00 100 03/19/20 03:26 24 Room Air 03/19/20 02:46 97.6 79 171/88 (115) 97.6 EKG: EKG: [] Radiology/Procedures: Radiology/Procedures: [] Course & Med Decision Making: Course & Med Decision Making Pertinent Labs and Imaging studies reviewed. (See chart for details) Patient is a 59 year old female who presents with abdominal pain and nausea. Patient's presentation is concerning for kidney stone. CBC, BMP, UA, CT a/p without contrast was ordered. Patient was given fluids, Toradol, morphine here in the emergency room. She is feeling significantly better. Patient does have a 5 mm kidney stone. Patient does not have an infected stone. I have r ecommended to her drinking lots of water. I will discharge her home with pain medicine. I have recommended that she call the urologist today to set up an appointment for the next couple of days just in case her kidney stone does not pass. I have discussed with her that if her symptoms come back and are not controlled she should return to the emergency room. Patient's test results and vitals while in the ED were fully reviewed and discussed with the patient. Patient is stable and at this time does not need admission to the hospital. We have discussed strict return precautions and the importance of following up with their Primary Care Physician. Patient stated understanding and was given an opportunity to ask any questions. Patient is in agreement with plan. Uriel Disclaimer: Uriel Disclaimer: This electronic medical record was generated, in whole or in part, using a voice recognition dictation system. Departure Departure Impression: Primary Impression: Kidney stone Disposition: 01 HOME, SELF-CARE Condition: STABLE Referrals: KEVIN FRIEDMAN MD (PCP) Patient Instructions: Kidney Stones Additional Instructions: Follow up with [facility] Scripts Ketorolac Tromethamine (KETOROLAC TROMETHAMINE) 10 Mg Tablet 1 TAB PO TID PRN for MODERATE PAIN 4-6, #15 TAB Prov: KEVIN MEDEIROS MD 03/19/20 Oxycodone/Apap 5-325 (PERCOCET 5-325 MG TABLET ) 1 Each Tablet 1 TAB PO PRN Q6HRS PRN for PAIN, #10 TAB 0 Refills Prov: KEVIN MEDEIROS MD 03/19/20 Justicifation of Admission Dx: Justifications for Admission: Justification of Admission Dx: N/A KEVIN MEDEIROS MD Mar 19, 2020 05:36
[2020-03-19 05:59] VITALS: BP 149/74
== END 2020-03-19 06:08 | disposition home or self-care (01) ==
LOC: ER 01:55
DX: N20.0 Calculus of kidney (principal); R10.2 Pelvic and perineal pain; R11.0 Nausea; E78.00 Pure hypercholesterolemia, unspecified; I10 Essential (primary) hypertension; Z90.710 Acquired absence of both cervix and uterus; Z98.890 Other specified postprocedural states; Z88.1 Allergy status to other antibiotic agents
CPT/HCPCS: 36415; 74176; 80053; 81001; 85025; 96361; 96374; 96375; 99285; J1885; J2270; J2405; J7030

== ENCOUNTER → 2020-04-12 | Outpatient (CLI) | payer OTHER ==
[2020-03-19 05:59] VITALS: BP 149/74
[~2020-04-12] MED LIST changes: +BUPIVACAINE MPF 0.25% 10 ML VIAL. ONE; +IOHEXOL 180 MG/ML 10 ML VIAL. ONE; +KETO10TA PO; +methylPREDNISolone ACETATE 80 MG/ML VIAL. ONE
--- NOTE | 2020-04-12 09:17 | PDOC ---
Progress Note - Pain Clinic Date of Service: DOS: DATE: 04/12/20 TIME: 09:13 Diagnosis: Dx: Left hip joint pain with primary osteoarthritis Right knee joint pain with primary osteoarthritis History or Present Illness: HPI: 59-year-old female returns follow-up status post right knee joint injection October 06, 2019. Patient reports did very well with 200% improvement about 5 months the pain returning down the right knee however her chief complaint is left hip pain she has significant pain back in September but the pain is gotten much worse with the left hip with walking standing putting all of her weight on her left side such as climbing stairs or stepping on the curb with all of her weight on the left side pain rating to the left groin as well as in the posterior hip and thigh and anterior thigh as well. Patient reports is a 10 on scale 10 is worse over the past week 10 on average 9 at its least is a 10 today. Patient reports is aching sometimes sharp radiating to the groin constant severe unbearable with weightbearing. Patient's right knee is doing much better however she is been favoring her left lower extremity and now using the right leg more which is causing some increase in the right knee pain. Patient reports no new motor or sensory deficits no new bowel or bladder incontinence or other complaints. Physical Exam: VS: Blood pressure is 165/104 pulse 85 respirations 16 temperature 90.0 F weight is 194 pounds PE: PHYSICAL EXAMINATION: GENERAL: The patient is awake, alert, oriented, appropriate, very pleasant demeanor HEENT: Shows normocephalic, atraumatic. Extraocular movements are intact and symmetrical. Oral cavity: Mucous membranes moist and pink. NECK: Shows anterior throat supple without palpable lymphadenopathy noted. Swallow reflex symmetrical. CHEST: Shows normal on inspection. Breath sounds are clear bilaterally, no rales rhonchi or wheezes auscultated. HEART: Shows S1, S2 clear. No murmurs auscultated. ABDOMEN: Soft, nontender, nondistended. No palpable organomegaly is noted. No rebound or guarding demonstrated. BACK: Shows spine grossly in the midline. Normal-appearing cervical lordotic curvature. There is slightly increased thoracic kyphosis, some minor flattening of the lumbar lordotic curvature. Lumbar paraspinous muscles show symmetrical on inspection, on palpation shows some moderate tenderness diffusely throughout the upper, middle and lower distribution of the paraspinous muscles bilaterally, but without specific trigger points, without radiation of pain. The patient has good rotational motion of the lumbar spine, both laterally as well as extension and flexion without significant difficulty. No tenderness over the spinous processes, sacrum or sacroiliac regions. EXTREMITIES: Lower extremities show deep tendon reflexes 1+ in the patellar and tendo calcaneus tendons. Motor exam is 5 on a scale of 5 with right dorsif lexion, extension, quadriceps and hamstring flexion and 5/5 on the left. Peripheral pulses are 1+ posterior tibial. No peripheral edema is noted bilaterally. Lower extremities are warm and dry to touch, equal in color and appearance. Kamari's maneuvers noted to be positive on the left with external rotation and posterior displacement of the left hip right side is negative. SKIN: Shows warm and dry, good turgor. No edema. No sores, rashes or bruising throughout. Procedure: Procedure: Options were discussed with the patient. Patient will chart reviews her current medication regimen updated current review of systems updated today as well. We will proceed with a left intra-articular hip joint injection using C-arm fluoros copic guidance today risks are discussed including but not limited to bleeding infection possibility of intravascular injection sequelae spread of local anesthetic and numbness side effects of steroid medication exposure fluoroscopy as well as poor results regarding pain control. Patient understands wished to proceed. Patient return to clinic in approximately 2 weeks for follow-up was counseled as to return appointment activity level and side effects to be aware. Medication Injected: Med Injected: Under sterile prep and a PCL fluoroscopic guidance left hip was sterilely prepped and draped using 1% lidocaine skin was anesthetized in the lateral aspect of the hip using a 22-gauge 5 inch Quincke needle with stylette was entered into the left hip joint without difficulty stylet was removed contrast was injected 2 cc of Omnipaque with good spread within the left hip joint without washout. At this time 3 cc 0.25% bupivacaine and 80 mg Depo-Medrol was then injection at the joint needle was removed sterile bandage was applied. Patient tolerated the procedure well had no complications. Condition at Discharge: Condition at Discharge: Discharge stable patient tolerated procedure well had no complications. CAROL JIMENEZ MD Apr 12, 2020 09:17
== END | disposition home or self-care (01) ==
LOC: PNCL 08:20
PROVIDERS: ATTEND Anesthesiology
DX: M16.12 Unilateral primary osteoarthritis, left hip (principal); M17.11 Unilateral primary osteoarthritis, right knee; I10 Essential (primary) hypertension; E11.9 Type 2 diabetes mellitus without complications; E78.00 Pure hypercholesterolemia, unspecified; Z79.899 Other long term (current) drug therapy; Z79.84 Long term (current) use of oral hypoglycemic drugs; Z88.8 Allergy status to other drugs, medicaments and biological substances
CPT/HCPCS: 20610; 77002; J1040; J3490; Q9965

== ENCOUNTER → 2020-05-09 | Outpatient (CLI) | payer OTHER ==
--- NOTE | 2020-05-09 08:57 | PDOC ---
Progress Note - Pain Clinic Date of Service: DOS: DATE: 05/09/20 TIME: 08:53 Diagnosis: Dx: Right knee joint pain with osteoarthritis Left hip joint pain with osteoarthritis History or Present Illness: HPI: 59-year-old female returns follow-up status post left hip joint injection and right knee joint injection patient reports did very well after the knee injection with near 100% improvement for about 5 months with the left hip was only minimally improved for about 2 weeks and the pain returned fairly significantly in the left hip. Patient ports worse with walking standing changing positions standing from a seated position and climbing steps or stairs putting on her weight on her left leg patient with her right knee is becoming more painful now with similar exacerbating factors of weightbearing standing climbing steps or putting all of her weight on her right knee. Patient reports no loss of motor function no new changes patient rates her pain as a 9 on scale 10 is worse over the past week 7 on average 3 displeasing is a 3 today regarding the right knee but is 7 regarding the left hip. Patient describes it as sharp and aching in the hip severe in the hip severe in the right knee as well. Reports no new motor or sensory deficits or other complaints. Physical Exam: VS: Blood pressure is 145/98 pulse 83 respirations 16 temperature 98.3 F weight is 195 pounds PE: PHYSICAL EXAMINATION: GENERAL: The patient is awake, alert, oriented, appropriate, very pleasant demeanor HEENT: Shows normocephalic, atraumatic. Extraocular movements are intact and symmetrical. Oral cavity: Mucous membranes moist and pink. Dentition is intact. NECK: Shows anterior throat supple without palpable lymphadenopathy noted. Swallow reflex symmetrical. CHEST: Shows normal on inspection. Breath sounds are clear bilaterally. HEART: Shows S1, S2 clear. No murmurs auscultated. ABDOMEN: Soft, nontender, nondistended, obese. No palpable organomegaly is noted. No rebound or guarding demonstrated. BACK: Shows spine grossly in the midline. Normal-appearing cervical lordotic curvature. There is slightly increased thoracic kyphosis, some minor flattening of the lumbar lordotic curvature. Lumbar paraspinous muscles show symmetrical on inspection, on palpation shows some moderate tenderness diffusely throughout the upper, middle and lower distribution of the paraspinous muscles bilaterally, without specific trigger points, without radiation of pain. The patient has good rotational motion of the lumbar spine, both laterally as well as extension and flexion without significant difficulty. No tenderness over the spinous processes, sacrum or sacroiliac regions. EXTREMITIES: Lower extremities show deep tendon reflexes 1+ in the patellar and tendo calcaneus tendons. Motor exam is 5 on a scale of 5 with right dorsiflexion, extension, quadriceps and hamstring flexion and 5/5 on the left. Peripheral pulses are 1+ posterior tibial. No peripheral edema is noted bilaterally. Lower extremities are warm and dry to touch, equal in color and appearance. Patient shows positive Kamari sign on the left with external rotation and posterior displacement of the left hip. Patient shows no difficulty with range of motion of the right knee no crepitus no ratcheting with passive motion. Patient does report pain with weightbearing and standing and is walking with a favoring gait favoring the right lower extremity. SKIN: Shows warm and dry, good turgor. No edema. No sores, rashes or bruising throughout. Procedure: Procedure: Options were discussed with the patient. Patient chart was reviewed as her current medication regimen updated current review of systems updated today as well. We will proceed with a right intra-articular knee joint injection today with fluoroscopic guidance risks were again discussed including but not limited to bleeding infection possibility of intravascular injection and sequelae spread local anesthetic numbness side effects of steroid medication exposure to fluoroscopy and poor results regarding pain control. Patient understands wished to proceed. Patient return to clinic in approximate 2 weeks for follow-up. Patient was counseled as to return appointment activity level and side effects to be aware of. Medication Injected: Med Injected: Under sterile prep and drape using fluoroscopic guidance patient's right knee was sterilely prepped and draped in usual fashion, using a 22-gauge quickie needle with stylette, under direct visualization via fluoroscopy patient's right knee joint was entered without difficulty stylet was removed 1.5 cc of contrast was then injected with good spread within the knee joint and without washout. At this time bupivacaine 3 cc and 80 mg Depo-Medrol was then injected needle was removed. Bandage was applied. Patient tolerated procedure well had no immediate complications. Condition at Discharge: Condition at Discharge: Condition at discharge is stable patient tolerated procedure well had no complications. CAROL JIMENEZ MD May 09, 2020 08:57
== END ==
LOC: PNCL 08:07
PROVIDERS: ATTEND Anesthesiology
DX: M17.11 Unilateral primary osteoarthritis, right knee (principal); M16.12 Unilateral primary osteoarthritis, left hip; I10 Essential (primary) hypertension; E11.9 Type 2 diabetes mellitus without complications; Z88.8 Allergy status to other drugs, medicaments and biological substances; Z79.899 Other long term (current) drug therapy; Z79.84 Long term (current) use of oral hypoglycemic drugs
CPT/HCPCS: 20610; 77002; J1040; J3490; Q9965

== ENCOUNTER 2020-06-16 15:43 | Observation (INO) | payer OTHER ==
[~2020-06-16] VITALS: Ht 157.5 cm; Wt 80.2 kg
[~2020-06-16 15:43] MED LIST changes: -BUPIVACAINE MPF 0.25% 10 ML VIAL. ONE; -IOHEXOL 180 MG/ML 10 ML VIAL. ONE; -methylPREDNISolone ACETATE 80 MG/ML VIAL. ONE
--- NOTE | 2020-06-16 16:13 | PHYS DOC ---
Past Medical History Past Medical History: High Cholesterol, Hypertension, UTI Additional Past Medical Histor: RLS, ULCERS Past Surgical History: Hysterectomy Additional Past Surgical Histo: BACK SX, R KNEE SX, LITHOTRIPSY, BLADDER SLING Smoking Status: Never Smoker Alcohol Use: None Drug Use: None General Adult EDM: Chief Complaint: FLANK PAIN HPI: HPI: History from patient. Patient is a 39-year-old female with a history of recent kidney stone and chronic UTI who presents with chief complaint of left flank pain. Patient states that she was diagnosed with a left-sided kidney stone 3 months ago. States she has been following with urologist Dr. Sterling for this. Denies any urologic intervention. She states that time she was diagnosed with an infection in her urine. She was given a weeks worth of nitrofurantoin. States she took a week off and then restarted the medicine due to persistent infection. She states this is occurred 3 times now she is taking it daily. Last dose was yesterday. Denies any urinary symptoms when she is taking the Macrobid. Denies vomiting but notes nausea. States that she did have a sudden onset of left lower back pain that began 3 to 4 hours ago while at rest. States it feels similar to when she was diagnosed with a kidney stone. She knows she is also due for left hip surgery and states that initially she thought it was related to hip pain when she was ultimately diagnosed with a kidney stone in February 2020. States that she did eat donuts today for breakfast without difficulty. Denies fevers. Denies vaginal bleeding or discharge. Denies change in her stool caliber or consistency. States her urologist is currently in quarantine for Covid. No complaints. Review of Systems: Review of Systems: Constitutional: Denies fever or chills. [] Eyes: Denies change in visual acuity. [] HENT: Denies nasal congestion or sore throat. [] Respiratory: Denies cough or shortness of breath. [] Cardiovascular: Denies chest pain or edema. [] GI: Denies abdominal pain, nausea, vomiting, bloody stools or diarrhea. [] : Denies dysuria. [] Musculoskeletal: Positive for left flank pain Integument: Denies rash. [] Neurologic: Denies headache, focal weakness or sensory changes. [] Endocrine: Denies polyuria or polydipsia. [] Lymphatic: Denies swollen glands. [] Psychiatric: Denies depression or anxiety. [] Heart Score: Risk Factors: Risk Factors: DM, Current or recent (<one month) smoker, HTN, HLP, family history of CAD, obesity. Risk Scores: Score 0 - 3: 2.5% MACE over next 6 weeks - Discharge Home Score 4 - 6: 20.3% MACE over next 6 weeks - Admit for Clinical Observation Score 7 - 10: 72.7% MACE over next 6 weeks - Early Invasive Strategies Allergies: Allergies: Allergies Coded Allergies Type Severity Reaction Last Updated Verified azithromycin Allergy Unknown 10/06/19 Yes Physical Exam: PE: Constitutional: Well developed, well nourished, no acute distress, non-toxic appearance. [] HENT: Normocephalic, atraumatic, bilateral external ears normal, oropharynx moist, no oral exudates, nose normal. [] Eyes: PERRLA, EOMI, conjunctiva normal, no discharge. [] Neck: Normal range of motion, no tenderness, supple, no stridor. [] Cardiovascular:Heart rate regular rhythm, no murmur [] Lungs & Thorax: Bilateral breath sounds clear to auscultation [] Abdomen: soft, no tenderness, no masses, no pulsatile masses. [] Skin: Warm, dry, no erythema, no rash. [] Back: Mild left CVA tenderness Extremities: No tenderness, no cyanosis, no clubbing, ROM intact, no edema. [] Neurologic: Alert and oriented X 3, normal motor function, normal sensory function, no focal deficits noted. [] Psychologic: Affect normal, judgement normal, mood normal. [] Current Patient Data: Labs: Vital Signs Date Time Temp Pulse Resp B/P (MAP) Pulse Ox O2 Delivery O2 Flow Rate FiO2 06/16/20 15:55 98.1 95 22 176/84 (114) 100 Room Air 98.1 Vital Signs: Vital Signs Date Time Temp Pulse Resp B/P (MAP) Pulse Ox O2 Delivery O2 Flow Rate FiO2 06/16/20 15:55 98.1 95 22 176/84 (114) 100 Room Air 98.1 EKG: EKG: [] Radiology/Procedures: Radiology/Procedures: [][facility] [address] [place] [address] IMAGING REPORT Signed PATIENT: MORAIMA WHITE ACCOUNT: [id number] : 1960 LOCATION: ER AGE: 59 SEX: F EXAM STATUS: REG ER ORD. PHYSICIAN: CHASE ALVARENGA DO REASON: L flank pain PROCEDURE: CT ABDOMEN PELVIS WO CONTRAST INDICATION: Reason: L flank pain / Spl. Instructions: / History: . COMPARISON: March 19, 2020 TECHNIQUE: Axial CT images obtained through the abdomen and pelvis without contrast. One or more of the following individualized dose reduction techniques were utilized for this examination: 1. Automated exposure control; 2. Adjustment of the mA and/or kV according to patient size; 3. Use of iterative reconstruction technique. FINDINGS: Linear opacities at the lung bases could be from scarring or atelectasis. Abdominal aorta is not aneurysmal. No intrahepatic bile duct dilation. Small high density focus within the gallbladder which could be from sludge or stone. No peripancreatic fluid collection. Spleen unremarkable. Nonobstructive left renal stone. The previously identified left-sided ureter stone has now progressed and is within the urinary bladder. Measures approximately 6 mm. There is some mild distention of the left ureter. No radiopaque ureter stone is seen at this time. Small fat-containing umbilical hernia. No dilated loops of bowel to suggest obstruction. The possible appendix does not appear dilated. Degenerative changes the spine with multilevel central canal neural foraminal stenosis. Degenerative changes of the hips. IMPRESSION: * Interval progression of previously identified left ureter stone which is now located within the urinary bladder. No current ureter stone is seen. * No evidence of bowel obstruction. Electronically signed by: Kate Friedman MD (06/16/2020 5:42 PM) [id number] DICTATED and SIGNED BY: KATE FRIEDMAN MD DATE: 06/16/20 [id number] 0 Course & Med Decision Making: Course & Med Decision Making Pertinent Labs and Imaging studies reviewed. (See chart for details) [] Patient is uncomfortable appearing 59-year-old female who presents with chief complaint of acute onset left lower back pain that began suddenly 3 hours prior to arrival. She notes history of kidney stones and states this feels similar. CT imaging does reveal a 6 mm kidney stone in the urinary bladder. No signs of hydronephrosis. Signs of ureteral involvement. Urinalysis shows no infection however she has been taking Macrobid daily due to chronic UTI. Remainder of labs unremarkable. Patient did require multiple rounds of analgesia. At this time the exact cause of her pain is unclear. However she states her symptoms are not been well controlled. I do not suspect that the urinary bladder stone is causing her symptoms. Furthermore no signs of rash to suggest zoster. No signs of aortic involvement. Urinalysis shows no evidence of infection however given she is currently on Macrobid Rocephin will be administered. Urine culture pending. This is possibly referred pain from her chronic left hip issues which she is scheduled to have replaced this following month. Given patient's intractable pain she will be hospitalized for further care. Uriel Disclaimer: Uriel Disclaimer: This electronic medical record was generated, in whole or in part, using a voice recognition dictation system. Departure Departure Impression: Primary Impression: Arthritis of left hip Disposition: ADMITTED INPT THIS HOSP Condition: STABLE Referrals: CATY DRAKE MD (PCP) CHASE ALVARENGA DO Jun 16, 2020 16:13
[2020-06-16 16:21] LABS: BILIRUBIN,URINE NEGATIVE (NEG); CLARITY,URINE CLEAR; COLOR,URINE YELLOW; NITRITE,URINE NEGATIVE (NEG); PH,URINE 6.5 (<5.0-8.0); PROTEIN,URINE NEGATIVE (NEG-TRACE); UROBILINOGEN,URINE 0.2 mg/dL (0.2 mg/dL)
[2020-06-16 16:23] LABS: BASO # 0.1 x10^3/uL (0.0-0.2); BASO % 1 % (0-3); EOS # 0.2 x10^3/uL (0.0-0.7); EOS % 3 % (0-3); HEMATOCRIT 39.3 % (36.0-47.0); HEMOGLOBIN 13.3 g/dL (12.0-15.5); LYMPH # 1.6 x10^3/uL (1.0-4.8); LYMPH % 23 % (24-48); MEAN CORPUSCULAR HEMOGLOBIN 32 pg (25-35); MEAN CORPUSCULAR HGB CONC 34 g/dL (31-37); MEAN CORPUSCULAR VOLUME 93 fL (79-100); MONO # 0.5 x10^3/uL (0.0-1.1); MONO % 8 % (0-9); NEUT # 4.5 x10^3/uL (1.8-7.7); NEUT % 65 % (31-73); PLATELET COUNT 247 x10^3/uL (140-400); RED BLOOD COUNT 4.21 x10^6/uL (3.50-5.40); RED CELL DISTRIBUTION WIDTH 13.4 % (11.5-14.5); WHITE BLOOD COUNT 6.9 x10^3/uL (4.0-11.0)
[2020-06-16] MEDS ORDERED: IV NORMAL SALINE 1000ML BAG 1,000 ML IV ONE (16:30)
[2020-06-16] MEDS ORDERED: ONDANSETRON PF 4 MG/2 ML VIAL. IVP ONE (16:30)
[2020-06-16] MEDS ORDERED: fentaNYL PF VIAL 100 MCG/2 ML VIAL IVP ONE (16:30)
[2020-06-16 16:31] LABS: BACTERIA,URINE FEW /HPF (0-FEW); RBC,URINE 0 /HPF (0-2); WBC,URINE 0 /HPF (0-4)
[2020-06-16 16:32] LABS: CALCIUM 9.2 mg/dL (8.5-10.1); CREATININE 0.6 mg/dL (0.6-1.0); GFR 102.3; POTASSIUM 3.5 mmol/L (3.5-5.1)
[2020-06-16] MEDS ORDERED: KETOROLAC 15 MG/ML VIAL. IVP ONE (17:00)
--- NOTE | 2020-06-16 17:45 | RAD ---
INDICATION: Reason: L flank pain / Spl. Instructions: / History: . COMPARISON: March 19, 2020 TECHNIQUE: Axial CT images obtained through the abdomen and pelvis without contrast. One or more of the following individualized dose reduction techniques were utilized for this examination: 1. Automated exposure control; 2. Adjustment of the mA and/or kV according to patient size; 3. Use of iterative reconstruction technique. FINDINGS: Linear opacities at the lung bases could be from scarring or atelectasis. Abdominal aorta is not aneurysmal. No intrahepatic bile duct dilation. Small high density focus within the gallbladder which could be from sludge or stone. No peripancreatic fluid collection. Spleen unremarkable. Nonobstructive left renal stone. The previously identified left-sided ureter stone has now progressed and is within the urinary bladder. Measures approximately 6 mm. There is some mild distention of the left ureter. No radiopaque ureter stone is seen at this time. Small fat-containing umbilical hernia. No dilated loops of bowel to suggest obstruction. The possible appendix does not appear dilated. Degenerative changes the spine with multilevel central canal neural foraminal stenosis. Degenerative changes of the hips. IMPRESSION: * Interval progression of previously identified left ureter stone which is now located within the urinary bladder. No current ureter stone is seen. * No evidence of bowel obstruction. Electronically signed by: Cole Frausto MD (06/16/2020 5:42 PM) [id number]
[2020-06-16] MEDS ORDERED: HYDROmorphone 2 MG/ML VIAL IVP ONE (18:00)
[2020-06-16] MEDS ORDERED: MORPHINE SULFATE 4 MG/ML VIAL. IV PRN (18:15)
[2020-06-16] MEDS ORDERED: cefTRIAXone IV Push 1 GM VIAL. IVP ONE (18:30)
--- NOTE | 2020-06-16 19:08 | RAD ---
EXAM: HIP LEFT 2V WITH PELVIS. HISTORY: Left hip and back pain. COMPARISON: 02/16/2020. FINDINGS: There is moderate joint space narrowing at the left hip, with moderate osteophytosis and over coverage. The joint spaces of the right hip are maintained. There are mild degenerative changes of the lower lumbar spine. No fractures are identified. Changes of bladder suspension surgery are noted. IMPRESSION: 1. Moderate left hip osteoarthritis. Electronically signed by: Mirza Packer MD (06/16/2020 7:05 PM) [facility]
--- NOTE | 2020-06-16 19:42 | HP ---
ADMIT DATE: 06/16/2020 CHIEF COMPLAINT: Left hip pain. HISTORY OF PRESENT ILLNESS: The patient is a pleasant 39-year-old female who presents with some left hip pain. She also has some left flank pain. She has a previous history of left hip degenerative joint disease. In fact, she is scheduled for surgery in June of this year. She states she had a steroid injection in her hip a couple of months ago and it is wearing off. She also has some flank pain. We did some imaging. She does have a kidney stone, but it is in the urinary bladder, it is not obstructing anything. There is no hydronephrosis. I suspect her pain is all secondary to her hip and she agrees. Rates her symptoms as 7/10, worse with moving, better with sitting still. I discussed the case with the ER physician. We are going to admit the patient and consult Dr. Rojo. PAST MEDICAL HISTORY: Left hip degenerative joint disease, hypertension, hyperlipidemia, UTI, restless legs, peptic ulcer, hysterectomy, back surgery, right ankle surgery, lithotripsy, and bladder sling. ALLERGIES: AZITHROMYCIN. FAMILY HISTORY: Diabetes. SOCIAL HISTORY: She does not drink, smoke, or take drugs. MEDICATIONS: Reviewed, please refer to the MRAD. REVIEW OF SYSTEMS: GENERAL: No history of weight change, weakness or fevers. SKIN: No bruising, hair changes or rashes. EYES: No blurred, double or loss of vision. NOSE AND THROAT: No history of nosebleeds, hoarseness or sore throat. HEART: No history of palpitations, chest pain or shortness of breath on exertion. LUNGS: Denies cough, hemoptysis, wheezing or shortness of breath. GASTROINTESTINAL: Denies changes in appetite, nausea, vomiting, diarrhea or constipation. GENITOURINARY: No history of frequency, urgency, hesitancy or nocturia. NEUROLOGIC: Denies history of numbness, tingling, tremor or weakness. PSYCHIATRIC: No history of panic, anxiety or depression. ENDOCRINE: No history of heat or cold intolerance, polyuria or polydipsia. EXTREMITIES: She complains of left hip pain. MUSCULOSKELETAL: She complains of some left flank pain. She thinks it is from her hip. LABORATORY DATA: Hematology is normal. Electrolytes are normal. Urinalysis negative. Hip films are pending. IMAGING: CT of the abdomen shows an interval progression of her previously identified left ureteral stone, which is now located within the urinary bladder. No current ureteral stone is seen. ASSESSMENT AND PLAN: Left hip pain. The patient has been admitted. We will consult Dr. Rojo. Home meds, DVT prophylaxis, full code. Empiric IV ceftriaxone, p.r.n. morphine, p.r.n. Zofran. Trend labs, PT/OT, p.r.n. Toradol. LUIS LOZANO DO DR: SAHRA/krystle JOB#: [id number] / [id number]
[2020-06-16 21:34] VITALS: BP 185/98
--- NOTE | 2020-06-16 21:35 | NUR ---
The patient, MORAIMA WHITE, 59 y/o, F admitted by LUIS LOZANO III, DO, was given written information regarding hospital policies, unit procedures and contact persons. RN received report from Graciela GOMEZ in the ED at 2121, patient was then transported from the ED to room 420 via gurney at 2134. RN performed a head to toe assessment at that time, VSS, afebrile, and pain rated a 7/10. Bed is in lowest locked position and call light is within reach. Valuables were checked and left in the room with the patient. RN will continue to monitor the patient closely.
[2020-06-16] MEDS ORDERED: OMEP40CA45 PO (22:03)
[2020-06-16] MEDS ORDERED: NITR100C6 PO (22:03)
[2020-06-16] MEDS ORDERED: KETOROLAC 30 MG/ML VIAL. IV PRN (22:30)
[2020-06-16] MEDS ORDERED: cloNIDine HCL 0.2 MG TABLET PO PRN (22:30)
[2020-06-16] MEDS: HYDROmorphone 2 MG/ML VIAL IVP PRN (22:34)
[2020-06-16 23:14] VITALS: BP 148/82
[2020-06-17] MEDS: ONDANSETRON PF 4 MG/2 ML VIAL. IV PRN ×2 (00:30→10:09)
[2020-06-17 03:14] VITALS: BP 109/71
[2020-06-17 07:00] VITALS: BP 123/84
[2020-06-17 08:23] LABS: BASO % 1 % (0-3); EOS # 0.1 x10^3/uL (0.0-0.7); EOS % 1 % (0-3); HEMATOCRIT 35.8 % (36.0-47.0); HEMOGLOBIN 12.3 g/dL (12.0-15.5); LYMPH # 1.8 x10^3/uL (1.0-4.8); LYMPH % 31 % (24-48); MEAN CORPUSCULAR HEMOGLOBIN 32 pg (25-35); MEAN CORPUSCULAR HGB CONC 34 g/dL (31-37); MEAN CORPUSCULAR VOLUME 94 fL (79-100); MONO # 0.4 x10^3/uL (0.0-1.1); MONO % 6 % (0-9); NEUT # 3.6 x10^3/uL (1.8-7.7); NEUT % 62 % (31-73); PLATELET COUNT 232 x10^3/uL (140-400); RED BLOOD COUNT 3.81 x10^6/uL (3.50-5.40); WHITE BLOOD COUNT 5.9 x10^3/uL (4.0-11.0)
[2020-06-17 08:59] LABS: CALCIUM 8.8 mg/dL (8.5-10.1); CREATININE 0.6 mg/dL (0.6-1.0); GFR 102.3; POTASSIUM 4.2 mmol/L (3.5-5.1)
[2020-06-17] MEDS: HYDROmorphone 2 MG/ML VIAL IVP PRN (10:09)
[2020-06-17] MEDS: PANTOPRAZOLE 40 MG TABLET.DR. PO SCH (10:16)
[2020-06-17] MEDS: LISINOPRIL 5 MG TABLET. PO SCH (10:17)
[2020-06-17] MEDS: CELECOXIB 100 MG CAPSULE. PO SCH (10:17)
[2020-06-17] MEDS: NITROFURANTOIN MONOHYD/M-CRYST 100 MG CAPSULE. PO SCH (10:17)
[2020-06-17 11:00] VITALS: BP 121/67
--- NOTE | 2020-06-17 11:16 | PDOC ---
[facility] [facility] PROGRESS NOTE Date of Service DOS: DATE: 06/17/20 TIME: 11:04 Chief Complaint Chief Complaint L. Hip Pain Osteoarthritis in L. Hip (probable cause of pain) UTI HTN present on admission Hx of Left hip degenerative joint disease Hx hypertension Hx hyperlipidemia Hx UTI Hx restless legs Hx peptic ulcer Hx hysterectomy Hx back surgery Hx right ankle surgery Hx lithotripsy Hx bladder sling. History of Present Illness History of Present Illness HISTORY OF PRESENT ILLNESS: The patient is a pleasant 39-year-old female who presents with some left hip pain. She also has some left flank pain. She has a previous history of left hip degenerative joint disease. In fact, she is scheduled for surgery in June of this year. She states she had a steroid injection in her hip a couple of months ago and it is wearing off. She also has some flank pain. We did some imaging. She does have a kidney stone, but it is in the urinary bladder, it is not obstructing anything. There is no hydronephrosis. I suspect her pain is all secondary to her hip and she agrees. Rates her symptoms as 7/10, worse with moving, better with sitting still. I discussed the case with the ER physician. We are going to admit the patient and consult Dr. Rojo. 06/17/20 Pt seen and examined in room. Pt complains of left hip pain that encompasses her entire hip and L. side of lower back. Pt attributes this to her osteoarthritis for which she has received treatment in the past. QUETA nurse. Pt's chart and imagining were reviewed. Pt denies any dysuria, frequency, urgency associated with UTI found on UA. Vitals/I&O Vitals/I&O: Vital Signs Date Time Temp Pulse Resp B/P (MAP) Pulse Ox O2 Delivery O2 Flow Rate FiO2 06/17/20 10:17 85 123/84 06/17/20 10:09 20 Room Air 06/17/20 07:00 98.1 97 98.1 I & O 06/16/20 06/16/20 06/17/20 15:00 23:00 07:00 Intake Total 1300 ml Output Total 200 ml Balance 1300 ml -200 ml Physical Exam General: Alert, Cooperative, No acute distress Heart: Regular rate, Normal S1, Normal S2 Lungs: Clear Abdomen: Normal bowel sounds, Soft Extremities: Other (pain in left hip to light palpation ) Skin: No significant lesion Labs Labs: Laboratory Tests Test 06/16/20 15:55 06/16/20 16:15 06/17/20 07:25 Urine Collection Type Unknown Urine Color Yellow Urine Clarity Clear Urine pH 6.5 (<5.0-8.0) Urine Specific [place] 1.020 (1.000-1.030) Urine Protein Negative mg/dL (NEG-TRACE) Urine Glucose (UA) Negative mg/dL (NEG) Urine Ketones (Stick) Negative mg/dL (NEG) Urine Blood Negative (NEG) Urine Nitrite Negative (NEG) Urine Bilirubin Negative (NEG) Urine Urobilinogen Dipstick 0.2 mg/dL (0.2 mg/dL) Urine Leukocyte Esterase Negative (NEG) Urine RBC 0 /HPF (0-2) Urine WBC 0 /HPF (0-4) Urine Squamous Epithelial Cells Mod /LPF Urine Bacteria Few /HPF (0-FEW) Urine Mucus Mod /LPF White Blood Count 6.9 x10^3/uL (4.0-11.0) 5.9 x10^3/uL (4.0-11.0) Red Blood Count 4.21 x10^6/uL (3.50-5.40) 3.81 x10^6/uL (3.50-5.40) Hemoglobin 13.3 g/dL (12.0-15.5) 12.3 g/dL (12.0-15.5) Hematocrit 39.3 % (36.0-47.0) 35.8 % (36.0-47.0) Mean Corpuscular Volume 93 fL (79-100) 94 fL (79-100) Mean Corpuscular Hemoglobin 32 pg (25-35) 32 pg (25-35) Mean Corpuscular Hemoglobin Concent 34 g/dL (31-37) 34 g/dL (31-37) Red Cell Distribution Width 13.4 % (11.5-14.5) 14.0 % (11.5-14.5) Platelet Count 247 x10^3/uL (140-400) 232 x10^3/uL (140-400) Neutrophils (%) (Auto) 65 % (31-73) 62 % (31-73) Lymphocytes (%) (Auto) 23 % (24-48) 31 % (24-48) Monocytes (%) (Auto) 8 % (0-9) 6 % (0-9) Eosinophils (%) (Auto) 3 % (0-3) 1 % (0-3) Basophils (%) (Auto) 1 % (0-3) 1 % (0-3) Neutrophils # (Auto) 4.5 x10^3/uL (1.8-7.7) 3.6 x10^3/uL (1.8-7.7) Lymphocytes # (Auto) 1.6 x10^3/uL (1.0-4.8) 1.8 x10^3/uL (1.0-4.8) Monocytes # (Auto) 0.5 x10^3/uL (0.0-1.1) 0.4 x10^3/uL (0.0-1.1) Eosinophils # (Auto) 0.2 x10^3/uL (0.0-0.7) 0.1 x10^3/uL (0.0-0.7) Basophils # (Auto) 0.1 x10^3/uL (0.0-0.2) 0.0 x10^3/uL (0.0-0.2) Sodium Level 139 mmol/L (136-145) 141 mmol/L (136-145) Potassium Level 3.5 mmol/L (3.5-5.1) 4.2 mmol/L (3.5-5.1) Chloride Level 102 mmol/L (98-107) 104 mmol/L (98-107) Carbon Dioxide Level 27 mmol/L (21-32) 29 mmol/L (21-32) Anion Gap 10 (6-14) 8 (6-14) Blood Urea Nitrogen 13 mg/dL (7-20) 9 mg/dL (7-20) Creatinine 0.6 mg/dL (0.6-1.0) 0.6 mg/dL (0.6-1.0) Estimated GFR (Cockcroft-Gault) 102.3 102.3 Glucose Level 125 mg/dL (70-99) 142 mg/dL (70-99) Calcium Level 9.2 mg/dL (8.5-10.1) 8.8 mg/dL (8.5-10.1) Review of Systems Review of Systems: GENERAL: No history of weight change, weakness or fevers. SKIN: No bruising, hair changes or rashes. EYES: No blurred, double or loss of vision. NOSE AND THROAT: No history of nosebleeds, hoarseness or sore throat. HEART: No history of palpitations, chest pain or shortness of breath on exertion. LUNGS: Denies cough, hemoptysis, wheezing or shortness of breath. GASTROINTESTINAL: Denies changes in appetite, nausea, vomiting, diarrhea or constipation. GENITOURINARY: No history of frequency, urgency, hesitancy or nocturia. NEUROLOGIC: Denies history of numbness, tingling, tremor or weakness. PSYCHIATRIC: No history of panic, anxiety or depression. ENDOCRINE: No history of heat or cold intolerance, polyuria or polydipsia. EXTREMITIES: She complains of left hip pain. MUSCULOSKELETAL: She complains of some left flank pain. She thinks it is from her hip. Assessment and Plan Assessmemt and Plan Assessment: L. Hip Pain Osteoarthritis in L. Hip (probable cause of pain) UTI asx- based on UA HTN present on admission Hx of Left hip degenerative joint disease Hx hypertension Hx hyperlipidemia Hx UTI Hx restless legs Hx peptic ulcer Hx hysterectomy Hx back surgery Hx right ankle surgery Hx lithotripsy Hx bladder sling. Plan Consult orthopedic surgery- Dr. Rojo consulted. Continue Home meds DVT prophylaxis full code Continue Macrobid for asx UTI Pain management with p.r.n. morphine p.r.n. Zofran. Trend labs PT/OT p.r.n. Toradol. Clonidine for HTN. Comment Review of Relevant I have reviewed the following items julian (where applicable) has been applied. Medications: Current Medications Medications (Trade) Dose Ordered Sig/Gen Route PRN Reason Start Time Stop Time Status Last Admin Dose Admin Fentanyl Citrate (Fentanyl 2ml Vial) 100 mcg 1X ONCE IVP 06/16/20 16:30 06/16/20 16:31 DC 06/16/20 16:22 Sodium Chloride 1,000 ml @ 1,000 mls/hr 1X ONCE IV 06/16/20 16:30 06/16/20 17:29 DC 06/16/20 16:21 Ondansetron HCl (Zofran) 4 mg 1X ONCE IVP 06/16/20 16:30 06/16/20 16:31 DC 06/16/20 16:21 Ketorolac Tromethamine (Toradol 15mg Vial) 15 mg 1X ONCE IVP 06/16/20 17:00 06/16/20 17:01 DC 06/16/20 17:17 Hydromorphone HCl (Dilaudid) 1 mg 1X ONCE IVP 06/16/20 18:00 06/16/20 18:01 DC 06/16/20 17:54 Ondansetron HCl (Zofran) 4 mg PRN Q8HRS PRN IV NAUSEA/VOMITING 06/16/20 18:15 06/17/20 18:14 06/17/20 10:09 Morphine Sulfate (Morphine Sulfate) 4 mg PRN Q2HR PRN IV PAIN 06/16/20 18:15 06/17/20 18:14 06/16/20 19:32 Ceftriaxone Sodium (Rocephin) 1 gm 1X ONCE IVP 06/16/20 18:30 06/16/20 18:31 DC 06/16/20 19:31 Hydromorphone HCl (Dilaudid) 1 mg PRN Q2HR PRN IVP SEVERE PAIN 7-10 06/16/20 22:30 06/17/20 10:09 Nitrofurantoin Macrocrystals (Macrobid) 100 mg DAILY PO 06/17/20 10:00 06/17/20 10:17 Celecoxib (CeleBREX) 200 mg DAILY PO 06/17/20 10:00 06/17/20 10:17 Lisinopril (Prinivil) 2.5 mg DAILY PO 06/17/20 10:00 06/17/20 10:17 Pantoprazole Sodium (Protonix) 40 mg DAILY PO 06/17/20 10:00 06/17/20 10:16 Justifications for Admission Other Justification LUIS LOZANO III DO Jun 17, 2020 11:16
[2020-06-17] MEDS ORDERED: PROCHLORPERAZINE 10 MG/2 ML VIAL. IV PRN (13:15)
[2020-06-17] MEDS ORDERED: ONDANSETRON PF 4 MG/2 ML VIAL. IV PRN (13:15)
[2020-06-17 15:00] VITALS: BP 117/68
--- NOTE | 2020-06-17 15:35 | NUR ---
Dr Rojo confirmed that he was aware that pt was here for left hip pain, but that she is already scheduled for a total hip replacement in June, and he is not able to move that time frame forward any at all. Dr Dinh consulted Dr Greene to see if we could stabilize her pain before she returns home. I did speak with Dr. Greene by phone and he will see Pt on Monday 06/18.
[2020-06-17 19:00] VITALS: BP 115/60
[2020-06-17 23:00] VITALS: BP 117/60
[2020-06-18] MEDS: HYDROmorphone 2 MG/ML VIAL IVP PRN (02:42)
[2020-06-18 03:00] VITALS: BP 150/91
[2020-06-18 07:30] VITALS: BP 123/76
[2020-06-18] MEDS: NITROFURANTOIN MONOHYD/M-CRYST 100 MG CAPSULE. PO SCH (08:47)
[2020-06-18] MEDS: LISINOPRIL 5 MG TABLET. PO SCH (08:47)
[2020-06-18] MEDS: CELECOXIB 100 MG CAPSULE. PO SCH (08:47)
[2020-06-18] MEDS: PANTOPRAZOLE 40 MG TABLET.DR. PO SCH (08:47)
[2020-06-18] MEDS ORDERED: oxyCODONE/APAP 5/325 1 TAB TABLET PO PRN (09:15)
--- NOTE | 2020-06-18 09:58 | CONS ---
DATE OF CONSULTATION: 06/18/2020 ATTENDING PHYSICIAN: Dr. Dinh. REASON FOR CONSULTATION: The patient was seen at the request of Dr. Dinh for rehab evaluation. 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 The patient with degenerative joint disease, mainly left hip, and she was scheduled for surgery, left total hip arthroplasty to be done by Dr. Rojo on 07/24/2020. The patient had steroid injection to her left hip about 2 months ago, it wore off. The patient admits burning sensation in the left side of her lower back area with radiation to her left groin. She admits chronic numbness in her right thigh lateral aspect. She admits some stiffness of her left hip and both knees. The patient is status post previous lumbar laminectomy done by Dr. Reynold Noe in the past without any chronic lower back pain. The patient also with known hypertension, hyperlipidemia, restless leg, peptic ulcer, hysterectomy, right ankle surgery, lithotripsy, bladder sling, known ALLERGY TO ERYTHROMYCIN. She also admits to GI discomfort after taking hydrocodone for 1 or 2 days. The patient lives with her family, had stairs to climb. She does not use a cane or a walker to walk. The patient admits that she might have twisted her back in the last few days that causes a burning sensation. The patient had x-rays of her hip, which revealed degenerative changes of the left hip. PHYSICAL EXAMINATION: Today, revealed a young female. The patient in no acute distress. She is alert, oriented to time, place, person and circumstance and follows commands appropriately, moves all 4 extremities voluntarily where she had 4+/5 grade muscle strength. Deep tendon reflexes are decreased overall. She had slightly decreased touch and pinprick sensation over the right lateral femoral cutaneous nerve distribution with negative Tinel sign over the right lateral femoral cutaneous nerve over the anterior aspect of right groin. The patient had some limitation of external rotation of left hip joint. She had a crepitus on range of motion of both knee joints without any obvious knee joint effusion. Overall, she had 5/5 grade muscle strength and left hip area pain reproduced by resist to left hip extension, abduction and adduction. The patient had tenderness to palpation over the left sacroiliac joint area, left trochanteric bursa and over the left hip adductor tendon attachment to the pubic tubercle. No significant lumbar paraspinal muscle spasm was noted at this time. Straight leg raising test is negative bilaterally. She is independent with bed mobility and transfers and she limps on her left foot to some extent while trying to walk slowly without any assistive devices. ASSESSMENT: Degenerative disk disease of lumbar vertebrae, status post lumbar decompression laminectomy with recent sprain with associated tendinitis left hip and left trochanteric bursitis in a patient with known degenerative joint disease of left hip and both knees to meralgia paresthetica, right. RECOMMENDATIONS: I have instructed her in a home program of physical modalities and stretching exercises to her lower back and also instructed her in proper body mechanics, to ask physical therapy to review with her proper body mechanics and gait training using a cane in her right hand to issue her a cane for use while up and also I gave her a prescription for Percocet for pain not controlled by Tylenol 5/325 mg. She was advised to continue taking Celebrex as long as it does not irritate her stomach. If her lower back pain persists, to consider injecting painful left sacroiliac joint area and left trochanteric bursa to help ease her pain. I spoke to Dr. Rojo and Dr. Kinsey. Dr. Dinh, I appreciate asking me to participate in the care of this interesting patient. I will be glad to see her for follow up with you on as needed basis. BEBO CARD MD DR: SANTA/krystle JOB#: [id number] / [id number]
[2020-06-18 10:55] VITALS: BP 154/85
--- NOTE | 2020-06-18 14:17 | PDOC ---
[facility] [facility] PROGRESS NOTE Date of Service DOS: DATE: 06/18/20 TIME: 14:15 Chief Complaint Chief Complaint L. Hip Pain Osteoarthritis in L. Hip (probable cause of pain) UTI HTN present on admission Hx of Left hip degenerative joint disease Hx hypertension Hx hyperlipidemia Hx UTI Hx restless legs Hx peptic ulcer Hx hysterectomy Hx back surgery Hx right ankle surgery Hx lithotripsy Hx bladder sling. History of Present Illness History of Present Illness HISTORY OF PRESENT ILLNESS: The patient is a pleasant 39-year-old female who presents with some left hip pain. She also has some left flank pain. She has a previous history of left hip degenerative joint disease. In fact, she is scheduled for surgery in June of this year. She states she had a steroid injection in her hip a couple of months ago and it is wearing off. She also has some flank pain. We did some imaging. She does have a kidney stone, but it is in the urinary bladder, it is not obstructing anything. There is no hydronephrosis. I suspect her pain is all secondary to her hip and she agrees. Rates her symptoms as 7/10, worse with moving, better with sitting still. I discussed the case with the ER physician. We are going to admit the patient and consult Dr. Rojo. 06/17/20 Pt seen and examined in room. Pt complains of left hip pain that encompasses her entire hip and L. side of lower back. Pt attributes this to her osteoarthritis for which she has received treatment in the past. QUETA nurse. Pt's chart and imagining were reviewed. Pt denies any dysuria, frequency, urgency associated with UTI found on UA. 06/18/20 Patient evaluated bedside. She reports improvement in her flank pain. She was provided pain medication by PM&R and states she can pickle processor a walking cane at [facility]. She is stable for discharge home with self-care. Greater than 30 minutes was spent in the management of patient's discharge. Vitals/I&O Vitals/I&O: Vital Signs Date Time Temp Pulse Resp B/P (MAP) Pulse Ox O2 Delivery O2 Flow Rate FiO2 06/18/20 10:55 98.0 84 16 154/85 (108) 94 Room Air 98.0 I & O 06/17/20 06/17/20 06/18/20 14:59 22:59 06:59 Intake Total 0 ml Balance 0 ml Physical Exam General: Alert, Cooperative, No acute distress Heart: Regular rate, Normal S1, Normal S2 Lungs: Clear Abdomen: Normal bowel sounds, Soft Extremities: Other (pain in left hip to light palpation ) Skin: No significant lesion Review of Systems Review of Systems: Denies fever, denies chest pain, denies nausea. Assessment and Plan Assessmemt and Plan Problems Medical Problems: (1) Arthritis of left hip Status: Acute (2) Left flank pain Status: Acute Problems: (1) Sepsis Qualifiers: Qualified Codes: A41.9 - Sepsis, unspecified organism (2) UTI (urinary tract infection) Qualifiers: Qualified Codes: N30.00 - Acute cystitis without hematuria Comment Review of Relevant I have reviewed the following items julian (where applicable) has been applied. Justifications for Admission Other Justification JOYCE FORDE MD Jun 18, 2020 14:17
--- NOTE | 2020-06-18 14:24 | NUR ---
SW following. Discussed with RN, pt from home, regular diet, room air. SW consulted for assistance obtaining a cane. SW met with pt (no isolation precautions at the time), pt reported she will get the cane from [facility], denied any further SW needs. RN notified. Pt would like to discharge home today, Dr. Kinsey notified. SW will continue to follow.
--- NOTE | 2020-06-18 14:26 | PDOC3 ---
Discharge Summary Visit Information Date of Admission: Jun 16, 2020 Date of Discharge: Jun 18, 2020 Final Diagnosis Problems Medical Problems: (1) Arthritis of left hip Status: Acute (2) Left flank pain Status: Acute Brief Hospital Course Allergies Allergies Coded Allergies Type Severity Reaction Last Updated Verified azithromycin Allergy Mild 06/17/20 Yes Vital Signs Vital Signs Date Time Temp Pulse Resp B/P (MAP) Pulse Ox O2 Delivery O2 Flow Rate FiO2 06/18/20 10:55 98.0 84 16 154/85 (108) 94 Room Air 98.0 Lab Results Laboratory Tests Test 06/16/20 15:55 06/16/20 16:15 06/17/20 07:25 Urine Collection Type Unknown Urine Color Yellow Urine Clarity Clear Urine pH 6.5 (<5.0-8.0) Urine Specific [place] 1.020 (1.000-1.030) Urine Protein Negative mg/dL (NEG-TRACE) Urine Glucose (UA) Negative mg/dL (NEG) Urine Ketones (Stick) Negative mg/dL (NEG) Urine Blood Negative (NEG) Urine Nitrite Negative (NEG) Urine Bilirubin Negative (NEG) Urine Urobilinogen Dipstick 0.2 mg/dL (0.2 mg/dL) Urine Leukocyte Esterase Negative (NEG) Urine RBC 0 /HPF (0-2) Urine WBC 0 /HPF (0-4) Urine Squamous Epithelial Cells Mod /LPF Urine Bacteria Few /HPF (0-FEW) Urine Mucus Mod /LPF White Blood Count 6.9 x10^3/uL (4.0-11.0) 5.9 x10^3/uL (4.0-11.0) Red Blood Count 4.21 x10^6/uL (3.50-5.40) 3.81 x10^6/uL (3.50-5.40) Hemoglobin 13.3 g/dL (12.0-15.5) 12.3 g/dL (12.0-15.5) Hematocrit 39.3 % (36.0-47.0) 35.8 % (36.0-47.0) Mean Corpuscular Volume 93 fL (79-100) 94 fL (79-100) Mean Corpuscular Hemoglobin 32 pg (25-35) 32 pg (25-35) Mean Corpuscular Hemoglobin Concent 34 g/dL (31-37) 34 g/dL (31-37) Red Cell Distribution Width 13.4 % (11.5-14.5) 14.0 % (11.5-14.5) Platelet Count 247 x10^3/uL (140-400) 232 x10^3/uL (140-400) Neutrophils (%) (Auto) 65 % (31-73) 62 % (31-73) Lymphocytes (%) (Auto) 23 % (24-48) 31 % (24-48) Monocytes (%) (Auto) 8 % (0-9) 6 % (0-9) Eosinophils (%) (Auto) 3 % (0-3) 1 % (0-3) Basophils (%) (Auto) 1 % (0-3) 1 % (0-3) Neutrophils # (Auto) 4.5 x10^3/uL (1.8-7.7) 3.6 x10^3/uL (1.8-7.7) Lymphocytes # (Auto) 1.6 x10^3/uL (1.0-4.8) 1.8 x10^3/uL (1.0-4.8) Monocytes # (Auto) 0.5 x10^3/uL (0.0-1.1) 0.4 x10^3/uL (0.0-1.1) Eosinophils # (Auto) 0.2 x10^3/uL (0.0-0.7) 0.1 x10^3/uL (0.0-0.7) Basophils # (Auto) 0.1 x10^3/uL (0.0-0.2) 0.0 x10^3/uL (0.0-0.2) Sodium Level 139 mmol/L (136-145) 141 mmol/L (136-145) Potassium Level 3.5 mmol/L (3.5-5.1) 4.2 mmol/L (3.5-5.1) Chloride Level 102 mmol/L (98-107) 104 mmol/L (98-107) Carbon Dioxide Level 27 mmol/L (21-32) 29 mmol/L (21-32) Anion Gap 10 (6-14) 8 (6-14) Blood Urea Nitrogen 13 mg/dL (7-20) 9 mg/dL (7-20) Creatinine 0.6 mg/dL (0.6-1.0) 0.6 mg/dL (0.6-1.0) Estimated GFR (Cockcroft-Gault) 102.3 102.3 Glucose Level 125 mg/dL (70-99) 142 mg/dL (70-99) Calcium Level 9.2 mg/dL (8.5-10.1) 8.8 mg/dL (8.5-10.1) Brief Hospital Course Ms. Forrest is a 59 old female who presented with sepsis, acute cystitis, left hip osteoarthritis. She received antibiotics empirically for UTI. Consultat ions placed to physical medicine and rehabilitation. Her pain was controlled adequately she was discharged with scheduled total left hip arthroplasty to be done on 07/24/2020. Discharge Information Condition at Discharge: Improved Disposition/Orders: D/C to Home Scheduled Celecoxib (Celebrex) 200 Mg Capsule, 1 CAP PO DAILY for inflamm, #30 Ref 2 (Reported) Entered as Reported by: ELIU SHARP on 10/06/19956 Last Action: Converted on 06/17/20947 by Maddy Cifuentes Lisinopril (Lisinopril) 2.5 Mg Tablet, 1 TAB PO DAILY for htn, #30 Ref 5 (Reported) Entered as Reported by: ELIU SHARP on 10/06/19956 Last Action: Converted on 06/17/20947 by Maddy Cifuentes Metformin Hcl (Metformin Hcl) 500 Mg Tablet, 500 MG PO DAILY for ANTI-DIABETIC, Ref 0 (Reported) Entered as Reported by: ELIU SHARP on 10/06/19956 Last Action: Reviewed on 06/16/202202 by RHETT LUJAN Nitrofurantoin Monohyd/M-Cryst (Nitrofurantoin [place]-Mcr 100 Mg) 100 Mg Capsule, 1 CAP PO DAILY for UTI, #10 (Reported) Entered as Reported by: RHETT LUJAN on 06/16/202202 Last Action: Continued on 06/17/20947 by Maddy Cifuentes Omeprazole (Omeprazole) 40 Mg Capsule.dr, 1 CAP PO DAILY for GERD, #30 Ref 3 (Reported) Entered as Reported by: RHETT LUJAN on 06/16/202202 Last Action: Converted on 06/17/20947 by Maddy Cifuentes Discontinued Medications Gabapentin (Gabapentin ) 100 Mg Capsule, 100 MG PO HS for NEUROGENIC PAIN, (Reported) Entered as Reported by: ELIU SHARP on 10/06/19956 Last Action: Discontinued on 06/16/202202 by RHETT LUJAN Pramipexole Di-Hcl (Mirapex) 0.25 Mg Tablet, 0.5 MG PO HS for restless legs, (Reported) Entered as Reported by: ELIU SHARP on 10/06/19956 Last Action: Discontinued on 06/16/202202 by RHETT LUJAN Simvastatin (Simvastatin) 40 Mg Tablet, 1 TAB PO QHS for high chol, #30 Ref 5 (Reported) Entered as Reported by: ELIU SHARP on 10/06/19956 Last Action: Discontinued on 06/16/202202 by RHETT LUJAN Vitamin B Complex (Super B-50 Complex) 1 Each Capsule, 1 EACH PO DAILY for supp, (Reported) Entered as Reported by: ELIU SHARP on 10/06/19956 Last Action: Discontinued on 06/16/202202 by RHETT LUJAN Justicifation of Admission Dx: Justifications for Admission: Justification of Admission Dx: N/A JOYCE FORDE MD Jun 18, 2020 14:26
--- NOTE | 2020-06-18 14:37 | NUR ---
Pt. informed of d/c home today.Pt. awaiting ride, stated family can pick her up after work approx 1630.
[2020-06-18 15:00] VITALS: BP 139/86
--- NOTE | 2020-06-18 17:23 | NUR ---
Pt. discharged to home with Rx, verbalized understanding of discharge instructions.
--- NOTE | 2020-06-18 17:35 | PDOC ---
PROGRESS NOTES Date of Service DATE: 06/18/20 TIME: 17:32 Subjective Subjective Problems overnight: Complains of severe left hip pain no new trauma Objective Vital Signs Vital Signs Date Time Temp Pulse Resp B/P (MAP) Pulse Ox O2 Delivery O2 Flow Rate FiO2 06/18/20 15:00 97.7 78 18 139/86 (103) 96 Room Air 97.7 Labs Laboratory Tests Test 06/17/20 07:25 White Blood Count 5.9 x10^3/uL (4.0-11.0) Red Blood Count 3.81 x10^6/uL (3.50-5.40) Hemoglobin 12.3 g/dL (12.0-15.5) Hematocrit 35.8 % (36.0-47.0) Mean Corpuscular Volume 94 fL (79-100) Mean Corpuscular Hemoglobin 32 pg (25-35) Mean Corpuscular Hemoglobin Concent 34 g/dL (31-37) Red Cell Distribution Width 14.0 % (11.5-14.5) Platelet Count 232 x10^3/uL (140-400) Neutrophils (%) (Auto) 62 % (31-73) Lymphocytes (%) (Auto) 31 % (24-48) Monocytes (%) (Auto) 6 % (0-9) Eosinophils (%) (Auto) 1 % (0-3) Basophils (%) (Auto) 1 % (0-3) Neutrophils # (Auto) 3.6 x10^3/uL (1.8-7.7) Lymphocytes # (Auto) 1.8 x10^3/uL (1.0-4.8) Monocytes # (Auto) 0.4 x10^3/uL (0.0-1.1) Eosinophils # (Auto) 0.1 x10^3/uL (0.0-0.7) Basophils # (Auto) 0.0 x10^3/uL (0.0-0.2) Sodium Level 141 mmol/L (136-145) Potassium Level 4.2 mmol/L (3.5-5.1) Chloride Level 104 mmol/L (98-107) Carbon Dioxide Level 29 mmol/L (21-32) Anion Gap 8 (6-14) Blood Urea Nitrogen 9 mg/dL (7-20) Creatinine 0.6 mg/dL (0.6-1.0) Estimated GFR (Cockcroft-Gault) 102.3 Glucose Level 142 mg/dL (70-99) Calcium Level 8.8 mg/dL (8.5-10.1) Assessment Assessment POD# Plan Plan of Care Rosa is scheduled for left total hip arthroplasty the end of June which is 3 months out from her last corticosteroid injection into her joint. She was clearly told at her clinic visit that we had to wait 3 months from her last corticosteroid injection until performing a total hip arthroplasty because of increased infection risk prior to that time. She is already scheduled for total hip arthroplasty and I do not feel comfortable moving that up in any way. Likewise if she proceeds with an additional injection that would put her planned hip replacement off even further. This was discussed with Dr. Greene who said he was going to emphasize this to the patient as well Justicifation of Admission Dx: Justifications for Admission: Justification of Admission Dx: N/A APOORVA MALAVE MD Jun 18, 2020 17:35
== END 2020-06-18 17:24 | disposition home or self-care (01) ==
LOC: ER 15:43 → INTOOBSV 18:10 → 4 NORTH 18:10
PROVIDERS: ADMIT Internal Medicine; ATTEND Internal Medicine
DX: M13.852 Other specified arthritis, left hip (principal); M25.552 Pain in left hip; I10 Essential (primary) hypertension; G25.81 Restless legs syndrome; K21.9 Gastro-esophageal reflux disease without esophagitis; K27.9 Peptic ulcer, site unspecified, unspecified as acute or chronic, without hemorrhage or perforation; E78.00 Pure hypercholesterolemia, unspecified; E78.5 Hyperlipidemia, unspecified; N20.2 Calculus of kidney with calculus of ureter; N39.0 Urinary tract infection, site not specified; Z79.899 Other long term (current) drug therapy; Z90.710 Acquired absence of both cervix and uterus; Z87.442 Personal history of urinary calculi; Z98.890 Other specified postprocedural states; Z87.11 Personal history of peptic ulcer disease; Z87.440 Personal history of urinary (tract) infections
CPT/HCPCS: 36415; 73502; 74176; 80048; 81001; 85025; 96361; 96374; 96375; 96376; 97110; 97116; 97162; 99285; G0378; J0696; J0780; J1170; J1885; J2270; J2405; J3010; J7030; G0379

== ENCOUNTER 2020-06-21 13:10 | Emergency (ER) | payer OTHER ==
[~2020-06-21] VITALS: Ht 157.5 cm; Wt 86.0 kg
[~2020-06-21 13:10] MED LIST changes: +NITR100C6 PO; +OMEP40CA45 PO
[2020-06-21 13:53] LABS: BILIRUBIN,URINE NEGATIVE (NEG); CLARITY,URINE CLOUDY; COLOR,URINE YELLOW; NITRITE,URINE NEGATIVE (NEG); PH,URINE 8.5 (<5.0-8.0); PROTEIN,URINE NEGATIVE (NEG-TRACE)
[2020-06-21] MEDS ORDERED: IV NORMAL SALINE 1000ML BAG 1,000 ML IV ONE (14:00)
[2020-06-21] MEDS ORDERED: KETOROLAC 30 MG/ML VIAL. IV ONE (14:00)
[2020-06-21] MEDS ORDERED: ONDANSETRON PF 4 MG/2 ML VIAL. IVP ONE (14:00)
[2020-06-21 14:06] LABS: AMORPHOUS SEDIMENT,UR PRESENT /HPF; BACTERIA,URINE 0 /HPF (0-FEW); RBC,URINE OCC /HPF (0-2); WBC,URINE 0 /HPF (0-4)
[2020-06-21 14:18] LABS: BASO # 0.1 x10^3/uL (0.0-0.2); BASO % 1 % (0-3); EOS # 0.2 x10^3/uL (0.0-0.7); EOS % 3 % (0-3); HEMATOCRIT 39.1 % (36.0-47.0); HEMOGLOBIN 13.4 g/dL (12.0-15.5); LYMPH # 1.7 x10^3/uL (1.0-4.8); LYMPH % 28 % (24-48); MEAN CORPUSCULAR HEMOGLOBIN 32 pg (25-35); MEAN CORPUSCULAR HGB CONC 34 g/dL (31-37); MEAN CORPUSCULAR VOLUME 92 fL (79-100); MONO # 0.4 x10^3/uL (0.0-1.1); MONO % 7 % (0-9); NEUT # 3.6 x10^3/uL (1.8-7.7); NEUT % 61 % (31-73); PLATELET COUNT 286 x10^3/uL (140-400); RED BLOOD COUNT 4.25 x10^6/uL (3.50-5.40); RED CELL DISTRIBUTION WIDTH 13.4 % (11.5-14.5)
[2020-06-21 14:23] LABS: CALCIUM 9.3 mg/dL (8.5-10.1); CREATININE 0.7 mg/dL (0.6-1.0); GFR 85.6; POTASSIUM 3.8 mmol/L (3.5-5.1)
--- NOTE | 2020-06-21 15:10 | RAD ---
Renal ultrasound complete. HISTORY: Left flank pain, just past 6 mm stone Ultrasound was used to evaluate kidneys and bladder. Right kidney was 10.4 cm in length without a mass or hydronephrosis. Lower pole of the right kidney not optimally visualized due to bowel gas. The left kidney was 10.7 cm in length without hydronephrosis there is no left renal mass. There is an echogenic focus in the left kidney possible renal calculus bladder was normal in appearance. IMPRESSION: 1. Echogenic focus left kidney possible calculus. 2. No hydronephrosis in either kidney. Electronically signed by: Reynold Reed MD (06/21/2020 3:07 PM) [facility]
--- NOTE | 2020-06-21 15:23 | ED.ADGEN ---
Past Medical History Past Medical History: High Cholesterol, Hypertension, UTI Additional Past Medical Histor: RLS, ULCERS Past Surgical History: Hysterectomy Additional Past Surgical Histo: BACK SX, R KNEE SX, LITHOTRIPSY, BLADDER SLING Smoking Status: Never Smoker Alcohol Use: None Drug Use: None General Adult EDM: Chief Complaint: PAIN CONTROL HPI: HPI: Patient is a 59 year old female who presents emergency department with complaints of left flank pain. Patient reports that she was seen here earlier this week where she was diagnosed with a 6 mm kidney stone. She states that she passed the stone today but she continues to have pain in her left flank. She denies any fever, cough, shortness of breath, vomiting, diarrhea, difficulty voiding, dysuria, chest pain, or palpitations. Patient states she has felt nauseated intermittently but denies any vomiting. She currently rates the pain a 10 out of 10 on the pain scale. Patient states she took oxycodone at home for the pain but it has not helped. Review of Systems: Review of Systems: Complete ROS is negative unless otherwise noted in HPI. Current Medications: Current Medications Medications (Trade) Dose Ordered Sig/Gen Start Time Stop Time Status Last Admin Dose Admin Ketorolac Tromethamine (Toradol 30mg Vial) 30 mg 1X ONCE 06/21/20 14:00 06/21/20 14:01 DC 06/21/20 14:26 30 MG Ondansetron HCl (Zofran) 4 mg 1X ONCE 06/21/20 14:00 06/21/20 14:01 DC 06/21/20 14:26 4 MG Sodium Chloride 1,000 ml @ 1,000 mls/hr 1X ONCE 06/21/20 14:00 06/21/20 14:59 DC 06/21/20 14:26 1,000 MLS/HR Allergies: Allergies: Allergies Coded Allergies Type Severity Reaction Last Updated Verified azithromycin Allergy Mild 06/17/20 Yes Physical Exam: PE: See Above Constitutional: Well developed, well nourished, no acute distress, non-toxic appearance, obese. [] HENT: Normocephalic, atraumatic, bilateral external ears normal, nose normal. [] Eyes: PERRLA, EOMI, conjunctiva normal, no discharge. [] Neck: Normal range of motion, no stridor. [] Cardiovascular:Heart rate regular rhythm Lungs & Thorax: Respirations even and unlabored, no retractions, no respiratory distress Abdomen: soft, no tenderness Skin: Warm, dry, no erythema, no rash. [] Extremities: No cyanosis, ROM intact, no edema. [] Neurologic: Alert and oriented X 3, no focal deficits noted. [] Psychologic: Affect normal, judgement normal, mood normal. [] Current Patient Data: Labs: Laboratory Tests Test 06/21/20 13:30 06/21/20 14:10 Urine Collection Type Unknown Urine Color Yellow Urine Clarity Cloudy Urine pH 8.5 (<5.0-8.0) Urine Specific [place] 1.015 (1.000-1.030) Urine Protein Negative mg/dL (NEG-TRACE) Urine Glucose (UA) Negative mg/dL (NEG) Urine Ketones (Stick) Negative mg/dL (NEG) Urine Blood Negative (NEG) Urine Nitrite Negative (NEG) Urine Bilirubin Negative (NEG) Urine Urobilinogen Dipstick 1.0 mg/dL (0.2 mg/dL) Urine Leukocyte Esterase Negative (NEG) Urine RBC Occ /HPF (0-2) Urine WBC 0 /HPF (0-4) Urine Squamous Epithelial Cells Mod /LPF Urine Amorphous Sediment Present /HPF Urine Bacteria 0 /HPF (0-FEW) Urine Mucus Mod /LPF White Blood Count 6.0 x10^3/uL (4.0-11.0) Red Blood Count 4.25 x10^6/uL (3.50-5.40) Hemoglobin 13.4 g/dL (12.0-15.5) Hematocrit 39.1 % (36.0-47.0) Mean Corpuscular Volume 92 fL (79-100) Mean Corpuscular Hemoglobin 32 pg (25-35) Mean Corpuscular Hemoglobin Concent 34 g/dL (31-37) Red Cell Distribution Width 13.4 % (11.5-14.5) Platelet Count 286 x10^3/uL (140-400) Neutrophils (%) (Auto) 61 % (31-73) Lymphocytes (%) (Auto) 28 % (24-48) Monocytes (%) (Auto) 7 % (0-9) Eosinophils (%) (Auto) 3 % (0-3) Basophils (%) (Auto) 1 % (0-3) Neutrophils # (Auto) 3.6 x10^3/uL (1.8-7.7) Lymphocytes # (Auto) 1.7 x10^3/uL (1.0-4.8) Monocytes # (Auto) 0.4 x10^3/uL (0.0-1.1) Eosinophils # (Auto) 0.2 x10^3/uL (0.0-0.7) Basophils # (Auto) 0.1 x10^3/uL (0.0-0.2) Sodium Level 138 mmol/L (136-145) Potassium Level 3.8 mmol/L (3.5-5.1) Chloride Level 102 mmol/L (98-107) Carbon Dioxide Level 27 mmol/L (21-32) Anion Gap 9 (6-14) Blood Urea Nitrogen 10 mg/dL (7-20) Creatinine 0.7 mg/dL (0.6-1.0) Estimated GFR (Cockcroft-Gault) 85.6 Glucose Level 136 mg/dL (70-99) H Calcium Level 9.3 mg/dL (8.5-10.1) Laboratory Tests 06/21/20 14:10 Laboratory Tests 06/21/20 14:10 Vital Signs: Vital Signs Date Time Temp Pulse Resp B/P (MAP) Pulse Ox O2 Delivery O2 Flow Rate FiO2 06/21/20 15:30 83 18 100 06/21/20 13:37 98.0 179/103 (128) 98.0 EKG: EKG: [] Heart Score: Risk Factors: Risk Factors: DM, Current or recent (<one month) smoker, HTN, HLP, family history of CAD, obesity. Risk Scores: Score 0 - 3: 2.5% MACE over next 6 weeks - Discharge Home Score 4 - 6: 20.3% MACE over next 6 weeks - Admit for Clinical Observation Score 7 - 10: 72.7% MACE over next 6 weeks - Early Invasive Strategies Radiology/Procedures: Radiology/Procedures: PROCEDURE: RENAL COMPLETE BILATERAL Renal ultrasound complete. HISTORY: Left flank pain, just past 6 mm stone Ultrasound was used to evaluate kidneys and bladder. Right kidney was 10.4 cm in length without a mass or hydronephrosis. Lower pole of the right kidney not optimally visualized due to bowel gas. The left kidney was 10.7 cm in length without hydronephrosis there is no left renal mass. There is an echogenic focus in the left kidney possible renal calculus bladder was normal in appearance. IMPRESSION: 1. Echogenic focus left kidney possible calculus. 2. No hydronephrosis in either kidney.[] Course & Med Decision Making: Course & Med Decision Making Pertinent Labs and Imaging studies reviewed. (See chart for details) 59-year-old female presented to the emergency room with complaints of continued left flank pain. She brought the kidney stone with her that she said came out in her urine today. CBC, BMP were unremarkable. Ultrasound of the left flank revealed no acute findings. I encouraged patient to follow-up with her primary care doctor and to take the stone with her so that it can be analyzed. I encouraged her to return to the emergency room if she developed a fever or symptoms worsen. I advised the patient to continue taking oxycodone as needed for pain. Patient verbalized an understanding of home care, medications, follow-up, and return to ED instructions and was in agreement with the plan of care. [] Dragon Disclaimer: Dragon Disclaimer: This electronic medical record was generated, in whole or in part, using a voice recognition dictation system. Departure Departure Impression: Primary Impression: Left flank pain Disposition: 01 DC HOME SELF CARE/HOMELESS Condition: STABLE Referrals: CATY DRAKE MD (PCP) Patient Instructions: Flank Pain, [id number] Additional Instructions: You taking your pain medication as previously prescribed. Recommend that you take your stone to your primary care doctor so it can be evaluated. Return to the ER if symptoms worsen or fever develops. SERA STACY [employer]ITATION OFFICER Jun 21, 2020 15:23
[2020-06-21 15:30] VITALS: BP 178/73
== END 2020-06-21 16:00 | disposition home or self-care (01) ==
LOC: ER 13:10
DX: R10.9 Unspecified abdominal pain (principal); E78.00 Pure hypercholesterolemia, unspecified; I10 Essential (primary) hypertension; G25.81 Restless legs syndrome; Z90.710 Acquired absence of both cervix and uterus; Z88.1 Allergy status to other antibiotic agents
CPT/HCPCS: 36415; 76770; 80048; 81001; 85025; 96361; 96374; 96375; 99284; J1885; J2405; J7030

== ENCOUNTER → 2020-07-02 | Outpatient (CLI) | payer OTHER ==
[2020-06-21 15:30] VITALS: BP 178/73
[~2020-07-02] MED LIST changes: +ACET500T68 PO; +IBUP200T58 PO; +VITA1TAB19 PO
[2020-07-02 09:52] LABS: BASO # 0.1 x10^3/uL (0.0-0.2); BASO % 1 % (0-3); EOS # 0.2 x10^3/uL (0.0-0.7); EOS % 3 % (0-3); HEMATOCRIT 42.7 % (36.0-47.0); HEMOGLOBIN 14.1 g/dL (12.0-15.5); LYMPH # 1.4 x10^3/uL (1.0-4.8); LYMPH % 25 % (24-48); MEAN CORPUSCULAR HEMOGLOBIN 31 pg (25-35); MEAN CORPUSCULAR HGB CONC 33 g/dL (31-37); MEAN CORPUSCULAR VOLUME 94 fL (79-100); MONO # 0.5 x10^3/uL (0.0-1.1); MONO % 9 % (0-9); NEUT # 3.7 x10^3/uL (1.8-7.7); NEUT % 63 % (31-73); PLATELET COUNT 293 x10^3/uL (140-400); RED BLOOD COUNT 4.55 x10^6/uL (3.50-5.40); RED CELL DISTRIBUTION WIDTH 13.8 % (11.5-14.5); WHITE BLOOD COUNT 5.8 x10^3/uL (4.0-11.0)
[2020-07-02 10:02] LABS: C-REACTIVE PROTEIN 5.5 mg/L (0-3.3); CALCIUM 9.6 mg/dL (8.5-10.1); CREATININE 0.5 mg/dL (0.6-1.0); GFR 126.3; POTASSIUM 4.6 mmol/L (3.5-5.1)
[2020-07-02 10:04] LABS: PROTHROMBIN TIME PATIENT 12.2 SEC (11.7-14.0)
--- NOTE | 2020-07-02 13:49 | RAD ---
Chest radiograph 07/02/2020 7:37 AM INDICATION: Preoperative left hip replacement COMPARISON: None available TECHNIQUE: Frontal and lateral views of the chest are provided. FINDINGS: The cardiomediastinal silhouette is within normal limits. There are no pleural effusions. There is no pulmonary vascular congestion. There is no pneumothorax. The lungs are clear. No significant osseous abnormality is identified. IMPRESSION: No acute cardiopulmonary process. Electronically signed by: Vicky Gore MD (07/02/2020 1:46 PM) [facility]
[2020-07-03 01:09] LABS: HEMOGLOBIN A1C 6.1 % (4.8-5.6)
== END ==
LOC: SURGPAT 12:40
PROVIDERS: ATTEND Orthopaedic Surgery
DX: Z01.818 Encounter for other preprocedural examination (principal); M16.12 Unilateral primary osteoarthritis, left hip
CPT/HCPCS: 36415; 71046; 80048; 82040; 82306; 83036; 85025; 85610; 85730; 86140; 87641

== ENCOUNTER → 2020-07-18 | Outpatient (CLI) | payer OTHER ==
[2020-06-21 15:30] VITALS: BP 178/73
[~2020-07-18] MED LIST changes: +MELO15TA23 PO; +OXYC5TAB4 PO; +WARF-31 PO; +WARF4TAB64 PO
== END ==
LOC: LAB 11:10
PROVIDERS: ATTEND Orthopaedic Surgery
DX: Z01.812 Encounter for preprocedural laboratory examination (principal); Z20.828 Contact with and (suspected) exposure to other viral communicable diseases; M16.12 Unilateral primary osteoarthritis, left hip
CPT/HCPCS: U0003

== ENCOUNTER 2020-07-24 06:24 | Observation (INO) | payer OTHER ==
[2020-07-24] VITALS (8 sets, daily range): BP systolic 97–140; BP diastolic 44–69
[~2020-07-24] VITALS: Ht 157.5 cm; Wt 82.1 kg
[~2020-07-24 06:24] MED LIST changes: +ACETAMINOPHEN 500 MG TABLET PO PRN; +GABAPENTIN 300 MG CAPSULE. PO PRN; -MELO15TA23 PO; +MELOXICAM 7.5 MG TABLET PO PRN; +MORPHINE SULFATE 5 MG, KETOROLAC 30MG VIAL 30 MG, ROPIVacaine 0.5% PF 60 ML, EPINEPHrin... INT ART ONE; -OMEP40CA45 PO; +OMEP40CA7 PO; -OXYC5TAB4 PO; +TRANEXAMIC ACID 1,000 MG in IV NS 50ML -- 1ST BAG INJ ONE; -WARF-31 PO; -WARF4TAB64 PO
[2020-07-24] MEDS ORDERED: SCOPOLAMINE 1.5MG PATCH. TD ONE ×2 (06:57→07:15)
[2020-07-24] MEDS ORDERED: MORPHINE SULFATE 2 MG/ML VIAL. IV PRN (07:00)
[2020-07-24] MEDS ORDERED: fentaNYL PF VIAL 100 MCG/2 ML VIAL IV PRN ×2 (07:00)
[2020-07-24] MEDS ORDERED: LIDOCAINE 1% PF 2 ML VIAL. ID PRN (07:00)
[2020-07-24] MEDS ORDERED: HYDROmorphone 2 MG/ML VIAL IV PRN (07:00)
[2020-07-24] MEDS ORDERED: PROCHLORPERAZINE 10 MG/2 ML VIAL. IV PRN (07:00)
[2020-07-24] MEDS ORDERED: ONDANSETRON PF 4 MG/2 ML VIAL. IV PRN (07:00)
[2020-07-24] MEDS ORDERED: IV RINGERS,LACTATED 1000ML 1,000 ML IV SCH (07:00)
[2020-07-24] MEDS ORDERED: MELO15TA23 PO (07:26)
[2020-07-24] MEDS ORDERED: WARF-31 PO (07:28)
[2020-07-24] MEDS ORDERED: LIDOCAINE 2% PF 5 ML VIAL. ONE (07:31)
[2020-07-24] MEDS ORDERED: ROCURONIUM 50 MG/5 ML VIAL. ONE (07:31)
[2020-07-24] MEDS ORDERED: PROPOFOL 10 MG/ML (20ML) VIAL. IV ONE (07:31)
[2020-07-24] MEDS ORDERED: MIDAZOLAM HCL/PF 2 MG/2 ML VIAL. ONE (07:32)
[2020-07-24] MEDS ORDERED: fentaNYL PF VIAL 250 MCG/5 ML VIAL ONE (07:32)
--- NOTE | 2020-07-24 07:44 | HP ---
ADMIT DATE: 07/24/2020 CHIEF COMPLAINT: Left hip pain. HISTORY OF PRESENT ILLNESS: The patient has had worsening of left hip pain for nearly a year and it has been progressive and severely affecting her activities of daily living. She had gotten injections in the past by Dr. Cho in the pain clinic and her last injection in mid 03/2020 really did not work very well or very long. They are losing their effectiveness and she wants to proceed with more definitive treatment. PAST MEDICAL HISTORY: Significant for kidney stones and history of some urinary tract infections as a result, hypertension, hyperlipidemia, diabetes, stomach ulcers, and a heart murmur. PAST SURGICAL HISTORY: Recent bowel procedure, she was found to have no kidney stones that had been done previously as well as a remote back surgery, hysterectomy and right knee surgery. FAMILY HISTORY: Mother , had a history of diabetes, hypertension, heart disease. Father , hypertension, cancer and mental illness. Several siblings and children that are healthy. Has a lung cancer in her brother and breast cancer in a sister. SOCIAL HISTORY: She denies tobacco, alcohol or drug use. Lives in a house with stairs, but has a ubajox[place]do[place]leb that has a ranch-type house that she can stay with if necessary postoperatively. ALLERGIES: She has no known drug allergies. MEDICATIONS: List is reviewed including lisinopril, gabapentin, meloxicam, metformin, simvastatin, and pramipexole. REVIEW OF SYSTEMS: Significant only for the recent bladder surgery where no kidney stones were found. No recent chest pain, shortness of breath, febrile illness or other constitutional symptoms. PHYSICAL EXAMINATION: VITAL SIGNS: Per admission sheet. HEENT: Atraumatic, normocephalic. HEART: Regular rate and rhythm. LUNGS: Clear to auscultation bilaterally. ABDOMEN: Benign. EXTREMITIES: Left hip reveals decreased range of motion in all planes with pain at her already limited range of motion extremes. Leg lengths are equal. She has a negative straight leg raise. Normal examination of the contralateral hip, bilateral knees and ankles. IMAGING: X-rays show severe degenerative change in the left hip, mild degenerative change on the right. ASSESSMENT: Primary osteoarthritis, left hip. TREATMENT PLAN: Since she is having severe hip pain uncontrolled by activity modification and previous injections, she wants to proceed with more definitive treatment. We had discussed at her clinic visit and reviewed today the possibility of instability, premature wear or loosening, nerve or blood vessel damage, infection, continued pain, medical or other anesthetic complications among others and she wants to proceed with surgical evaluation and treatment with joint center observation to follow. APOORVA MALAVE MD DR: ANA LAURA/krystle JOB#: [id number] / [id number]
[2020-07-24] MEDS: INSULIN LISPRO 100 UNIT/ML 3ML VIAL for OP,RR ONLY. SQ PRN ×2 (07:50→10:05)
[2020-07-24] MEDS ORDERED: TRANEXAMIC ACID 1,000 MG in IV NS 50ML -- 2ND BAG INJ ONE (08:00)
[2020-07-24] MEDS ORDERED: PHENYLEPHRINE in 0.9% NACL PF 1 MG/10 ML SYRINGE. IV ONE (08:09)
[2020-07-24] MEDS ORDERED: ONDANSETRON PF 4 MG/2 ML VIAL. ONE (08:10)
[2020-07-24] MEDS ORDERED: SEVOFLURANE > 120 MINUTES. IH ONE (08:10)
[2020-07-24 08:12] LABS: PROTHROMBIN TIME PATIENT 12.2 SEC (11.7-14.0)
[2020-07-24] MEDS ORDERED: fentaNYL PF VIAL 100 MCG/2 ML VIAL IVP PRN (08:15)
[2020-07-24] MEDS ORDERED: PROCHLORPERAZINE 5 MG TABLET. PO PRN (08:15)
[2020-07-24] MEDS ORDERED: diphenhydrAMINE 50 MG/ML VIAL IVP PRN (08:15)
[2020-07-24] MEDS ORDERED: ZOLPIDEM 5 MG TABLET. PO PRN (08:15)
[2020-07-24] MEDS ORDERED: MORPHINE SULFATE 2 MG/ML VIAL. IVP PRN (08:15)
[2020-07-24] MEDS ORDERED: CALCIUM CARBONATE 500 MG TAB.CHEW PO PRN (08:15)
[2020-07-24] MEDS ORDERED: DEXTROSE 50% 25 GM / 50ML DISP.SYRIN. IV PRN (08:15)
[2020-07-24] MEDS ORDERED: 0.9 % SODIUM CHLORIDE 10 ML DISP.SYRIN. IV PRN (08:15)
[2020-07-24] MEDS ORDERED: HYDROmorphone 2 MG/ML VIAL ONE (09:02)
[2020-07-24] MEDS ORDERED: INSULIN LISPRO 100 UNIT/ML 3ML VIAL for OP,RR ONLY. SQ ONE ×2 (10:15)
[2020-07-24] MEDS ORDERED: fentaNYL PF VIAL 100 MCG/2 ML VIAL ONE (10:28)
--- NOTE | 2020-07-24 10:39 | RAD ---
Examination: XR PELVIS 1-2V History: Reason: post op / Spl. Instructions: / History: Comparison/Correlation: 06/16/2020 Findings: Frontal view of the pelvis was obtained. Portable technique was utilized and the patient wa s supine for this exam. Left total hip joint arthroplasty is intact. No findings to suggest fracture or loosening on the frontal view provided. Soft tissue gas consistent with immediate postoperative st atus is evident. Bilateral densities overlying the superior pubic ramus again seen. Correlate with hi story of intervention. Impression: Unremarkable postoperative frontal view of the pelvis. Electronically signed by: Adrien De Dios MD (07/24/2020 10:36 AM) [id number]
--- NOTE | 2020-07-24 10:42 | NUR ---
Arrived to unit by bed from PACU. Awakens easily but drowsy. Rates pain at "3". Dressing on left hip d/i. Able to move lower extremities, warm touch and pedal pulses + bilaterally. IVF's intact and infusing. VAIBHAV's and SCD's on bilaterally. Side rails up x's 2 with call light in reach. Oriented to room and controls. Son at bedside. Cont. monitor.
[2020-07-24] MEDS: ONDANSETRON ODT 4 MG TAB.RAPDIS. PO SCH ×2 (12:00→17:32)
[2020-07-24] MEDS: ONDANSETRON PF 4 MG/2 ML VIAL. IVP SCH ×2 (12:00→16:57)
[2020-07-24] MEDS: MULTIVITAMIN with MINERAL TABLET. PO SCH (14:14)
[2020-07-24] MEDS: SENNOSIDES/DOCUSATE 8.6/50MG TABLET. PO SCH (14:15)
[2020-07-24] MEDS ORDERED: WARFARIN 7.5 MG TABLET. PO ONE (16:00)
[2020-07-24] MEDS: FERROUS SULFATE 325 MG TABLET. PO SCH (16:57)
[2020-07-24] MEDS ORDERED: KETOROLAC 30MG VIAL 30 MG, BUPIVACAINE MPF 0.25% 20 ML, EPINEPHrine 0.5 MG in TOTAL VOL... INT ART SCH (18:00)
[2020-07-24] MEDS: IV NORMAL SALINE 1000ML BAG 1,000 ML IV SCH (19:32)
--- NOTE | 2020-07-24 19:57 | PDOC4 ---
Operative Note Operative Note Date of surgery: 07/24/2020 Preoperative diagnosis: Degenerative joint disease left hip Postoperative diagnosis: Same Operative procedure: Left total hip arthroplasty with posterior approach Surgeon Darrel Gathering Machine Feeder: Ck ngo Anesthesia: General Estimated blood loss: 250 cc Complications: None Drains: None Operative indications: Please see my orthopedic clinic note and dictated history and physical for detailed operative indications and note that we covered risks benefits postoperative course of the procedure. All her questions were answered and she wishes to proceed with surgical evaluation and treatment having given informed consent Operative text: Patient was identified procedure verified patient placed in the lateral position on the operating table after adequate amounts of general anesth esia were administered. All bony prominences were well-padded and left hip was prepped and draped in the standard sterile fashion. After timeout was performed patient procedure identified and verified an incision was made curvilinear centered over the greater trochanter and dissection carried out down to the iliotibial band and gluteal fascia which were split in line with their fibers. A Charnley retractor was placed external rotators were divided from their insertion and hip capsule was split in a T fashion. Hip was then dislocated and femoral neck cut was made using a Rk Avenir broach for reference and the femoral head was removed and sized noting severe degenerative change and sent for pathological evaluation. Reaming was carried out from a size 41 to a size 47 with a size 48 cluster hole cup placed in proper version and alignment under fluoroscopic guidance and achieved a very solid scratch fit and therefore no screw fixation was applied. A 32 mm vitamin E liner was impacted into place. Femur was then prepared with a box osteotome rattail rasp and successive size broaching up to a size to have a near femoral trial broach standard offset which provided excellent stability and fit within the canal. Trial fitting with a - 3.5 32 mm head with a standard offset neck to reproduce leg length and offset appropriately. Trial components were removed and a size 2 standard offset c ollared Avenir stem was impacted into place with a -3.5 ceramic 32 mm head. Excellent stability and range of motion were noted and leg length reproduced according to measurements from the contralateral side. Thorough irrigation carried out with dilute Betadine solution and then washed further with normal saline solution and pulse lavage. Intra-articular mixture was injected subp eriosteally throughout the joint capsule and subcutaneous areas. Hip capsule was repaired with max braid suture and external rotators attached transosseously with max braid suture. Fascia was closed with #1 PDS strata fix suture in a running fashion subcutaneous closure with buried Vicryl skin closure with subcuticular Monocryl and a erin dressing was applied. Patient was returned to recovery room in stable condition having tolerated the procedure well. Ck ngo was present for the procedure and assisted in the patient positioning prepping draping retraction closure and dressings APOORVA MALAVE MD Jul 24, 2020 19:57
[2020-07-25 03:00] VITALS: BP 108/64
--- NOTE | 2020-07-25 04:24 | NUR ---
Has been sleeping soundly, snores loudly. Bladder scan shows 386cc, voided 100cc. States she had recent "bladder tubes and kidney stone surgery."
[2020-07-25] MEDS: IV NORMAL SALINE 1000ML BAG 1,000 ML IV SCH (04:44)
[2020-07-25] MEDS: oxyCODONE IR 5 MG TABLET PO PRN ×3 (04:49→20:43)
[2020-07-25] MEDS ORDERED: GABAPENTIN 100 MG CAPSULE. PO SCH (06:00)
[2020-07-25] MEDS: traMADol 50 MG TABLET PO SCH ×4 (06:00→17:05)
[2020-07-25] MEDS ORDERED: MAGNESIUM HYDROXIDE 2,400 MG/30 ML ORAL.SUSP. PO PRN (06:00)
[2020-07-25] MEDS: ONDANSETRON ODT 4 MG TAB.RAPDIS. PO SCH ×2 (06:00)
[2020-07-25] MEDS: ONDANSETRON PF 4 MG/2 ML VIAL. IVP SCH ×2 (06:00)
[2020-07-25] MEDS: PANTOPRAZOLE 40 MG TABLET.DR. PO SCH (06:06)
[2020-07-25 06:33] VITALS: BP 99/55
[2020-07-25] MEDS: NITROFURANTOIN MONOHYD/M-CRYST 100 MG CAPSULE. PO SCH (08:07)
[2020-07-25] MEDS: ACETAMINOPHEN 500 MG TABLET PO SCH ×3 (08:07→20:40)
[2020-07-25] MEDS: FERROUS SULFATE 325 MG TABLET. PO SCH ×2 (08:07→16:37)
[2020-07-25] MEDS: metFORMIN 500 MG TABLET PO SCH (08:07)
[2020-07-25] MEDS: VITAMIN B COMPLEX TABLET. PO SCH (08:07)
[2020-07-25] MEDS: MELOXICAM 7.5 MG TABLET PO SCH (08:07)
[2020-07-25] MEDS: SENNOSIDES/DOCUSATE 8.6/50MG TABLET. PO SCH (08:07)
[2020-07-25] MEDS: MULTIVITAMIN with MINERAL TABLET. PO SCH (08:08)
[2020-07-25] MEDS: LISINOPRIL 5 MG TABLET. PO SCH (08:09)
[2020-07-25 08:23] LABS: PROTHROMBIN TIME PATIENT 15.5 SEC (11.7-14.0)
[2020-07-25] MEDS ORDERED: PRAMIPEXOLE 0.25 MG TABLET. PO SCH ×2 (09:00→21:00)
--- NOTE | 2020-07-25 09:27 | NUR ---
Patient BP has been running low. This morning it was 99/60 with a pulse of 99. Patient asymptomatic at this time. BP medication held per protocol parameters. Encouraged patient to drink fluids. Will continue to monitor.
--- NOTE | 2020-07-25 10:56 | NUR ---
Pharmacy Warfarin Dosing Note S: Pharmacy consulted to assist with anticoagulation therapy started 07/24/20 O: MORAIMA WHITE is a 59 year old F with ODETTE LABS: Last INR: 1.3 Last HGB: - Last HCT: - Last PLT: - Last dose of 7.5 mg given on 07/24/20 at 1657 Ongoing Drug Interactions: MOBIC A:INR of 1.3 is below desired range. Target range for this patient is: 1.6 - 2.5 P: Warfarin dose: 5 mg Today at 1600 Bridge Therapy: None Next INR due 07/26/20 AM Pharmacy anticoagulation service will continue to follow. KENDALL POTTER R[facility], 07/25/20 [id number]
[2020-07-25] MEDS ORDERED: ONDANSETRON PF 4 MG/2 ML VIAL. IVP PRN (12:00)
[2020-07-25] MEDS ORDERED: ONDANSETRON ODT 4 MG TAB.RAPDIS. PO PRN (12:00)
[2020-07-25 14:58] LABS: HEMATOCRIT 31.6 % (36.0-47.0); HEMOGLOBIN 10.5 g/dL (12.0-15.5)
[2020-07-25] MEDS ORDERED: BISACODYL 10 MG SUPP.RECT. PR PRN (16:00)
[2020-07-25] MEDS ORDERED: WARFARIN 5 MG TABLET. PO ONE (16:00)
[2020-07-25 17:19] VITALS: BP 121/70
--- NOTE | 2020-07-25 18:34 | PDOC ---
PROGRESS NOTES Date of Service DATE: 07/25/20 TIME: 18:32 Subjective Subjective Problems overnight: Soreness in operative hip getting around reasonably well has some exacerbation of sleep apnea Objective Vital Signs Vital Signs Date Time Temp Pulse Resp B/P (MAP) Pulse Ox O2 Delivery O2 Flow Rate FiO2 07/25/20 17:58 93 Room Air 07/25/20 17:19 98.0 103 18 121/70 (87) 98.0 07/25/20 06:33 2.0 Physical Exam Hip dressing clean dry intact leg lengths equal distal neurovascular status intact Labs Laboratory Tests Test 07/24/20 06:45 07/24/20 08:45 07/24/20 10:00 07/24/20 16:41 Prothrombin Time 12.2 SEC (11.7-14.0) Prothromb Time International Ratio 0.9 (0.8-1.1) Activated Partial Thromboplast Time 26 SEC (24-38) Glucose (Fingerstick) 109 mg/dL (70-99) 153 mg/dL (70-99) 123 mg/dL (70-99) Test 07/25/20 06:18 07/25/20 07:40 Glucose (Fingerstick) 142 mg/dL (70-99) Hemoglobin 10.5 g/dL (12.0-15.5) Hematocrit 31.6 % (36.0-47.0) Mean Corpuscular Hemoglobin Concent 33 g/dL (31-37) Prothrombin Time 15.5 SEC (11.7-14.0) Prothromb Time International Ratio 1.3 (0.8-1.1) Laboratory Tests Test 07/25/20 06:18 07/25/20 07:40 Glucose (Fingerstick) 142 mg/dL (70-99) Hemoglobin 10.5 g/dL (12.0-15.5) Hematocrit 31.6 % (36.0-47.0) Mean Corpuscular Hemoglobin Concent 33 g/dL (31-37) Prothrombin Time 15.5 SEC (11.7-14.0) Prothromb Time International Ratio 1.3 (0.8-1.1) Imaging Postop x-rays show left total hip arthroplasty in excellent alignment reproducing exactly leg length and offset Assessment Assessment POD#1 left total hip arthroplasty Plan Plan of Care Mobilize with physical therapy weightbearing as tolerated standard total hip precautions Coumadin per anticoagulation clinic Likely home with home health when stable for discharge Justicifation of Admission Dx: Justifications for Admission: Justification of Admission Dx: Yes Comments: Transitioning from IV pain medications APOORVA MALAVE MD Jul 25, 2020 18:34
[2020-07-26] MEDS: ACETAMINOPHEN 500 MG TABLET PO SCH ×3 (03:00→15:28)
[2020-07-26] MEDS: PANTOPRAZOLE 40 MG TABLET.DR. PO SCH (06:14)
[2020-07-26] MEDS: traMADol 50 MG TABLET PO SCH ×3 (06:15→12:04)
[2020-07-26 06:26] VITALS: BP 109/69
[2020-07-26 08:19] LABS: PROTHROMBIN TIME PATIENT 17.9 SEC (11.7-14.0)
[2020-07-26] MEDS: metFORMIN 500 MG TABLET PO SCH (08:40)
[2020-07-26] MEDS: SENNOSIDES/DOCUSATE 8.6/50MG TABLET. PO SCH (08:40)
[2020-07-26] MEDS: MULTIVITAMIN with MINERAL TABLET. PO SCH (08:40)
[2020-07-26] MEDS: NITROFURANTOIN MONOHYD/M-CRYST 100 MG CAPSULE. PO SCH (08:40)
[2020-07-26] MEDS: VITAMIN B COMPLEX TABLET. PO SCH (08:41)
[2020-07-26] MEDS: MELOXICAM 7.5 MG TABLET PO SCH (08:41)
[2020-07-26] MEDS: FERROUS SULFATE 325 MG TABLET. PO SCH (08:41)
[2020-07-26] MEDS: LISINOPRIL 5 MG TABLET. PO SCH (08:46)
[2020-07-26] MEDS: oxyCODONE IR 5 MG TABLET PO PRN ×2 (08:55→15:29)
--- NOTE | 2020-07-26 09:20 | DISCH ---
DISCHARGE INSTRUCTIONS Condition on Discharge Condition on Discharge: Stable Activity After Discharge Activity Instructions for Disc: Activity as tolerated (Avoid extreme hip fl exion or internal rotation) Lifting Instructions after Dis: No heavy lifting Weight Bearing Status after Di: As tolerated Diet after Discharge Diet after Discharge: Regular Wound Incision Care Wound/Incision Care: Ice to area for comfort, Do not change dressing Contacting the DRTyrone after DC Call your doctor for: Concerns you may have Follow-Up Follow up with: Dr. Rojo 2 weeks postoperatively Treatment/Equipment after DC Adaptive Equipment Issued: None Warfarin Follow-Up Warfarin Follow UP: [facility] to manage warfarin dosing and testing APOORVA ROJO MD Jul 26, 2020 09:19
[2020-07-26 11:59] VITALS: BP 108/68
[2020-07-26 13:38] LABS: HEMATOCRIT 30.3 % (36.0-47.0)
[2020-07-26] MEDS ORDERED: WARFARIN 5 MG TABLET. PO ONE (14:00)
[2020-07-26] MEDS ORDERED: OXYC5TAB4 PO (14:17)
[2020-07-26] MEDS ORDERED: WARF4TAB64 PO (14:19)
--- NOTE | 2020-07-26 15:42 | NUR ---
Pharmacy Warfarin Dosing Note S:Pharmacy consulted to assist with anticoagulation therapy started 07/24/20 with target INR: 1.6 - 2.5 O:MORAIMA WHITE is a 59 year old F with ODETTE LABS: Last INR: 1.5 Last HGB: 10.0 Last HCT: 30.3 Last PLT: - Ongoing Drug Interactions: MOBIC A:INR within desired Range. P: Warfarin dose: 5 mg will be given today prior to discharge. Give 4 mg daily. End of therapy 09/03/20 (6 weeks of therapy). Indication for warfarin is prevention of VTE after major joint surgery. KENDALL POTTER [facility], 07/26/20 [id number]
--- NOTE | 2020-07-26 16:10 | NUR ---
Discharge instructions given with prescription. Answered questions and concerns. Verbalized understanding. Pt discharged home with Outpatient rehab. Escorted out by w/c accompanied by son.
--- NOTE | 2020-07-27 07:06 | DS ---
DATE OF DISCHARGE: 07/26/2020 ORTHOPEDIC DISCHARGE SUMMARY PRINCIPAL DIAGNOSIS: Degenerative joint disease of left hip. PROCEDURE: Left total hip arthroplasty. DISPOSITION: Discharge is to home with outpatient physical therapy. ACTIVITY: Weightbearing as tolerated, standard total hip precautions. Maintain hip dressing, call if saturated, redness, fever, chills or other problems. DISPOSITION MEDICATIONS: Oxycodone 5 mg p.o. q.4 hours p.r.n. pain, warfarin as directed by [facility]. Continue preoperative medications except for stopping ibuprofen, meloxicam and Percocet. BRIEF DESCRIPTION OF HOSPITAL COURSE: The patient underwent uncomplicated left total hip arthroplasty. Postoperatively, remained medically stable, ambulated and transferred well with physical therapy and was discharged home in stable condition. APOORVA MALAVE MD DR: ANA LAURA/krystle JOB#: [id number] / [id number]
--- NOTE | 2020-07-30 09:57 | NUR ---
Cefazolin started at 01:59 on 07/25--stop time 02:30 on 07/25
--- NOTE | 2020-07-30 16:07 | PATHOLOGY ---
[facility] Accession Number: [id number] . 01 Material submitted: . femur - LEFT FEMORAL HEAD. Modifiers: left, head . 01 Clinical history: . OA LEFT HIP . 02 Diagnosis: Femoral head, left hip posterior total arthroplasty: - Degenerative arthritis. (JPM:monico; 07/30/2020) QMS 07/30/2020 1503 Local . 02 Electronically signed: . Ulysses Olivia MD, Pathologist NPI- [id number] . 01 Gross description: . The specimen is received in formalin, labeled "Rosa Forrest, femoral head". The site is further designated on the requisition as, "L hip". Received is a femoral head with attached femoral neck measuring 4.6 x 4.6 x 5.2 cm in greatest dimensions. The articular surface is smooth to granular in appearance with a slight amount of eburnation identified. Osteophytic lipping and osteophytes are identified. Sectioning reveals yellow-larios cut surfaces with no grossly distinct nodules or lesions. The specimen is submitted representatively in cassette A1, following decalcification. (CAA; 07/25/2020) QAC/QAC 07/25/2020 1201 Local . 02 Pathologist provided ICD-10: M16.12 . 02 CPT . 910271, 316091 Specimen Comment: A courtesy copy of this report has been sent to [phone], [phone] Specimen Comment: [id number] Specimen Comment: Report sent to / DR DRAKE Performed at: 01 [facility] [address], [place], [place] [id number] MD Pavan Stark MD Phone: [phone] Performed at: 02 [facility] [address] [place], [place] [id number] MD Ulysses Olivia MD Phone: [phone]
== END 2020-07-26 16:10 | disposition home or self-care (01) ==
LOC: SURG 06:24 → 4 SOUTHEST 08:04
PROVIDERS: ADMIT Orthopaedic Surgery; ATTEND Orthopaedic Surgery
DX: M16.12 Unilateral primary osteoarthritis, left hip (principal); I10 Essential (primary) hypertension; E11.9 Type 2 diabetes mellitus without complications; G47.30 Sleep apnea, unspecified; E78.5 Hyperlipidemia, unspecified; Z87.442 Personal history of urinary calculi; Z96.642 Presence of left artificial hip joint; Z87.11 Personal history of peptic ulcer disease; Z87.19 Personal history of other diseases of the digestive system
CPT/HCPCS: 27130; 36415; 72170; 82962; 85014; 85018; 85610; 85730; 86850; 86900; 86901; 96365; 96366; 96375; 97116; 97150; 97162; 97166; 97530; 97535; C1776; G0378; G0379; J0171; J0690; J1170; J1815; J1885; J2250; J2270; J2370; J2405; J2704; J2795; J3010; J3490; J7030; J7120; 88304; 88311; C1880

== ENCOUNTER → 2021-04-05 | Day surgery (SDC) | payer OTHER ==
[~2021-04-05] VITALS: Ht 157.5 cm; Wt 89.0 kg
[~2021-04-05] MED LIST changes: -ACETAMINOPHEN 500 MG TABLET PO PRN; +CHOL5000 PO; -GABAPENTIN 300 MG CAPSULE. PO PRN; +IV RINGERS,LACTATED 1000ML 1,000 ML IV SCH; +LIDOCAINE 2% PF 5 ML VIAL. ONE; -LISI2.5T PO; +LISI2.5T12 PO; +MELO15TA23 PO; -MELOXICAM 7.5 MG TABLET PO PRN; -MORPHINE SULFATE 5 MG, KETOROLAC 30MG VIAL 30 MG, ROPIVacaine 0.5% PF 60 ML, EPINEPHrin... INT ART ONE; +OXYC5TAB4 PO; +PROPOFOL 10 MG/ML (20ML) VIAL. IV ONE; -TRANEXAMIC ACID 1,000 MG in IV NS 50ML -- 1ST BAG INJ ONE; +WARF-31 PO; +WARF4TAB64 PO
[2021-04-05 06:57] VITALS: BP 140/83
[2021-04-05 08:42] VITALS: BP 128/74
--- NOTE | 2021-04-07 02:22 | HP ---
ADMIT DATE: 04/05/2021 REFERRING PHYSICIAN: Ck Frausto MD HISTORY OF PRESENT ILLNESS: A 60-year-old female with past medical history significant for osteoarthrosis, diabetes, gastroesophageal reflux disease, history of nephrolithiasis, history of colonic polyps, status post hip replacement, seen for seen for interval colon exam. Bowel habits are regular without diarrhea or constipation. There has been no melena and/or hematochezia. Weight and appetite are stable. She is otherwise without additional complaints. PAST MEDICAL HISTORY: Hypertension, diabetes, gastroesophageal reflux disease, nephrolithiasis, status post hip replacement. ALLERGIES: AZITHROMYCIN, ERYTHROMYCIN, SIMVASTATIN. MEDICATIONS: Celebrex, lisinopril, metformin, omeprazole, Mirapex, and vitamin ____. FAMILY HISTORY: Significant for colon cancer in both her brother and her father. SOCIAL HISTORY: She is nonsmoker and nondrinker. PAST SURGICAL HISTORY: Hysterectomy, back surgery and hip replacement. REVIEW OF SYSTEMS: Per records. PHYSICAL EXAMINATION: GENERAL: Reveals a well-nourished, well-developed female. VITAL SIGNS: Temperature is 98, pulse 90, respirations 20. LUNGS: Clear. CARDIOVASCULAR: Reveals an S1, S2, without S3, S4 or appreciable murmur. ABDOMEN: Reveals a soft abdomen, normal bowel sounds, without appreciable hepatosplenomegaly. IMPRESSION: Family history of colon cancer. Surveillance exam is recommended at this time. Risks and benefits of procedure including risk of hemorrhage and perforation during the operation were discussed. The patient is willing to proceed. KAYY/SOFÍA DR: Sarah TID: [id number]
== END | disposition home or self-care (01) ==
LOC: ENDOS 06:24
PROVIDERS: ATTEND Internal Medicine Gastroenterology
DX: Z12.11 Encounter for screening for malignant neoplasm of colon (principal); K64.0 First degree hemorrhoids; K63.89 Other specified diseases of intestine; I10 Essential (primary) hypertension; E11.9 Type 2 diabetes mellitus without complications; E78.00 Pure hypercholesterolemia, unspecified; M19.90 Unspecified osteoarthritis, unspecified site; K21.9 Gastro-esophageal reflux disease without esophagitis; Z86.010 Personal history of colon polyps; Z87.440 Personal history of urinary (tract) infections; Z79.84 Long term (current) use of oral hypoglycemic drugs; Z79.899 Other long term (current) drug therapy; Z90.710 Acquired absence of both cervix and uterus; Z98.890 Other specified postprocedural states; Z88.1 Allergy status to other antibiotic agents; Z88.8 Allergy status to other drugs, medicaments and biological substances; Z80.0 Family history of malignant neoplasm of digestive organs; Z83.3 Family history of diabetes mellitus
CPT/HCPCS: 45378; J2704

== ENCOUNTER → 2021-09-20 | Outpatient (CLI) | payer OTHER ==
[2021-04-05 08:42] VITALS: BP 128/74
[~2021-09-20] MED LIST changes: -IV RINGERS,LACTATED 1000ML 1,000 ML IV SCH; -LIDOCAINE 2% PF 5 ML VIAL. ONE; -PROPOFOL 10 MG/ML (20ML) VIAL. IV ONE
--- NOTE | 2021-09-20 13:13 | KCIC ---
XR LUMBAR SPINE 2-3V 09/20/2021 Reason: Chronic LBP, pain Rt side of back. / Spl. Instructions: Previous back surgery 30+ yrs. ago Comparison: Lumbar spine radiograph 11/12/2018 Technique: AP lateral lumbosacral views lumbar spine Findings: There are 5 nonrib-bearing vertebral bodies in lumbar spine. AP alignment is normal. Minimal disc spa ce narrowing throughout the lumbar spine, but moderate/severe at the L5-S1 level. Mild marginal osteo phytes. Moderate degenerative change of the facet joints throughout the lumbar spine. Left hemilamine ctomy at L5. Impression: Overall mild progression of degenerative facet disease when compared to 2019. Similar degenerative di sc disease. Electronically signed by: Yony Yepez (09/20/2021 1:08 PM) [id number]
== END ==
LOC: KCIC 10:38
PROVIDERS: ATTEND Internal Medicine Rheumatology
DX: M51.36 Other intervertebral disc degeneration, lumbar region (principal); M48.061 Spinal stenosis, lumbar region without neurogenic claudication; M25.78 Osteophyte, vertebrae
CPT/HCPCS: 72100